=== PATIENT | male | born 1995 | race Caucasian/White ===

== ENCOUNTER 2017-11-29 08:37 | Emergency (ER) | payer BC ==
--- NOTE | 2017-11-29 08:53 | EDPHYS ---
Physician Documentation [facility] Name: Jess Bautista Age: 22 yrs Sex: Male : 1995 Arrival Date: 11/29/2017 Time: 08:42 Bed 20 Private MD: ED Physician Norberto Leroy HPI: 11/29 08:47 This 22 yrs old Male presents to ER via Unassigned with complaints of Facial kb Swelling. 08:47 The patient presents with an abscess of the right nostril, the patient presents with a kb swollen area of the right cheek. Description: draining, erythematous, swollen. Onset: The symptoms/episode began/occurred yesterday. Possible cause(s): unknown. Associated signs and symptoms: Pertinent positives: drainage, erythema, swelling, Pertinent negatives: foreign body sensation, fever, headache, nausea, shortness of breath, vomiting. Modifying factors: the symptoms are alleviated by nothing, the symptoms are aggravated by nothing. Severity of symptoms: At their worst the symptoms were mild, moderate, in the emergency department the symptoms are unchanged. The patient has not experienced similar symptoms in the past. The patient has not recently seen a physician. Pt states he has a pimple-like bump in his nose that his girlfriend popped last night, woke up with swelling right cheek and nose. Historical: - Allergies: 08:49 No Known Allergies; em - Home Meds: 08:49 None [Active]; em - PMHx: 08:49 None; em - PSHx: 08:49 None; em - Immunization history:: Adult Immunizations up to date. - Social history:: Smoking status: Patient/guardian denies using tobacco. ROS: 08:47 Constitutional: Negative for fever, chills, and weight loss, ENT: Negative for injury, kb pain, and discharge, Neck: Negative for injury, pain, and swelling, Cardiovascular: Negative for chest pain, palpitations, and edema, Respiratory: Negative for shortness of breath, cough, wheezing, and pleuritic chest pain, Abdomen/GI: Negative for abdominal pain, nausea, vomiting, diarrhea, and constipation, MS/Extremity: Negative for injury and deformity, Neuro: Negative for headache, weakness, numbness, tingling, and seizure. 08:47 Skin: Positive for abscess, erythema, swelling, of the right nostril. Exam: 08:47 Constitutional: This is a well developed, well nourished patient who is awake, alert, kb and in no acute distress. Chest/axilla: Normal chest wall appearance and motion. Nontender with no deformity. No lesions are appreciated. Cardiovascular: Regular rate and rhythm with a normal S1 and S2. No gallops, murmurs, or rubs. Normal PMI, no JVD. No pulse deficits. Respiratory: Lungs have equal breath sounds bilaterally, clear to auscultation and percussion. No rales, rhonchi or wheezes noted. No increased work of breathing, no retractions or nasal flaring. Abdomen/GI: Soft, non-tender, with normal bowel sounds. No distension or tympany. No guarding or rebound. No evidence of tenderness throughout. MS/ Extremity: Pulses equal, no cyanosis. Neurovascular intact. Full, normal range of motion. Neuro: Awake and alert, GCS 15, oriented to person, place, time, and situation. Cranial nerves II-XII grossly intact. Motor strength 5/5 in all extremities. Sensory grossly intact. Cerebellar exam normal. Normal gait. 08:47 Head/face: Noted is no obvious of injury or deformity except swelling, that is moderate, of the right cheek. 08:47 Skin: abscess, that is small, of the right nostril, with drainage, with induration. Vital Signs: 08:49 BP 140 / 84; Pulse 86; Resp 18; Temp 98.4(O); Pulse Ox 98% on R/A; Weight 56.7 kg; em Height 5 ft. 8 in. (172.72 cm); Pain 6/10; 08:49 Body Mass Index 19.01 (56.70 kg, 172.72 cm) em MDM: 08:47 Data reviewed: vital signs, nurses notes. Data interpreted: Pulse oximetry: on room air kb is 100 %. Interpretation: normal. Counseling: I had a detailed discussion with the patient and/or guardian regarding: the historical points, exam findings, and any diagnostic results supporting the discharge/admit diagnosis, the need for outpatient follow up, a family practitioner, to return to the emergency department if symptoms worsen or persist or if there are any questions or concerns that arise at home. 08:47 Patient medically screened. kb Administered Medications: 09:02 Drug: Bactrim (160 mg-800 mg (DS) 1 tablet Route: PO; em 09:02 Follow up: Response: Medication administered at discharge. em Disposition: 11/29/17 08:53 Discharged to Home. Impression: Cutaneous abscess of face - right nostril. - Condition is Stable. - Discharge Instructions: Abscess, [id number]. - Prescriptions for Bactroban 2 % Topical Ointment - apply 1 application by INTRANASAL route every 12 hours for 5 days; 15 gram. Bactrim DS 800- 160 mg Oral Tablet - take 1 tablet by ORAL route every 12 hours for 7 days; 14 tablet. - Medication Reconciliation Form, Thank You Letter, Antibiotic Education, Prescription Opioid Use form. - Follow up: Emergency Department; When: As needed; Reason: Worsening of condition. Follow up: Private Physician; When: 2 - 3 days; Reason: Recheck today's complaints, Continuance of care, Re-evaluation by your physician. Addendum: 12/01/2017 07:23 Co-signature as Attending Physician, Norberto Leroy MD. g s Signatures: Debra Lim, SHANK BONER-C SHANK BONER-Ckb Balaji Reyes, DIRECTOR SYSTEMS DIRECTOR SYSTEMS Norberto Leroy MD MD
--- NOTE | 2017-11-29 08:53 | ER ---
Nurse's Notes [facility] Name: Jess Bautista Age: 22 yrs Sex: Male : 1995 Arrival Date: 11/29/2017 Time: 08:42 Bed 20 Private MD: Diagnosis: Cutaneous abscess of face-right nostril Presentation: 11/29 08:47 Presenting complaint: Patient states: facial swelling that started last night after em popping pimple in the nose, reports 99 temp. Transition of care: patient was not received from another setting of care. Onset of symptoms was November 28, 2017. Care prior to arrival: None. 08:47 Method Of Arrival: Ambulatory em 08:50 Acuity: AGNES 4 iw Triage Assessment: 08:49 General: Appears in no apparent distress. uncomfortable, right side swelling near top em lip and right side of nose. General: Behavior is calm, cooperative. Pain: Complains of pain in right cheek and nose. Historical: - Allergies: 08:49 No Known Allergies; em - Home Meds: 08:49 None [Active]; em - PMHx: 08:49 None; em - PSHx: 08:49 None; em - Immunization history:: Adult Immunizations up to date. - Social history:: Smoking status: Patient/guardian denies using tobacco. Screenin:51 Abuse screen: Denies threats or abuse. Nutritional screening: No deficits noted. em Tuberculosis screening: No symptoms or risk factors identified. Fall Risk None identified. Assessment: 08:52 General: Appears in no apparent distress. uncomfortable, Behavior is calm, cooperative. em Pain: Complains of pain in right cheek and nose and right nostril Pain currently is 6 out of 10 on a pain scale. Pain began 1 day ago. Neuro: Level of Consciousness is. Neuro: Level of Consciousness is awake, alert, obeys commands, Oriented to person, place, time, situation. Cardiovascular: Capillary refill < 3 seconds Patient's skin is warm and dry. Respiratory: Airway is patent Respiratory effort is even, unlabored, Respiratory pattern is regular, symmetrical. GI: Abdomen is flat. : No signs and/or symptoms were reported regarding the genitourinary system. EENT: Nares swelling noted near the right nare. Derm: Skin is intact, Skin is pink, warm \T\ dry. Musculoskeletal: Range of motion: intact in all extremities. 09:02 Reassessment: I agree with above assessment by Balaji Reyes LVN. iw Vital Signs: 08:49 BP 140 / 84; Pulse 86; Resp 18; Temp 98.4(O); Pulse Ox 98% on R/A; Weight 56.7 kg; em Height 5 ft. 8 in. (172.72 cm); Pain 6/10; 08:49 Body Mass Index 19.01 (56.70 kg, 172.72 cm) em ED Course: 08:42 Patient arrived in ED. mr 08:43 Debra Lim FNP-C is PHCP. kb 08:43 Norberto Leroy MD is Attending Physician. kb 08:47 Balaji Reyes LVN is Primary Nurse. em 08:49 Arm band placed on. em 08:51 Patient has correct armband on for positive identification. Bed in low position. Call em light in reach. Side rails up X2. Adult w/ patient. 08:51 No provider procedures requiring assistance completed. em 09:02 Patient did not have IV access during this emergency room visit. em 09:03 Triage completed. iw Administered Medications: 09:02 Drug: Bactrim (160 mg-800 mg (DS) 1 tablet Route: PO; em 09:02 Follow up: Response: Medication administered at discharge. em Outcome: 08:53 Discharge ordered by . kb 09:02 Discharged to home ambulatory. em 09:02 Condition: good 09:02 Discharge instructions given to patient, Instructed on discharge instructions, follow up and referral plans. medication usage, Demonstrated understanding of instructions, follow-up care, medications, Prescriptions given X 2. 09:03 Patient left the ED. em Signatures: Debra Lim FNP-C FNP-Ckb Rivera, Maria ReyesBalaji LVN LVN em Krys Perez RN RN iw
[2017-11-29] MEDS ORDERED: SMZ./TMP. 800/160 MG TABLET ONE (09:17)
== END 2017-11-29 09:03 | disposition home or self-care (01) ==
LOC: ER 08:37
DX: L02.01 Cutaneous abscess of face (principal)
CPT/HCPCS: 99283

== ENCOUNTER 2018-04-13 21:08 | Emergency (ER) | payer BC ==
--- NOTE | 2018-04-13 22:20 | ER ---
Nurse's Notes [facility] Name: Jess Bautista Age: 23 yrs Sex: Male : 1995 Arrival Date: 04/13/2018 Time: 21:13 Bed 3 Private MD: Diagnosis: Acute pharyngitis Presentation: 04/13 21:23 Presenting complaint: Patient states: Sore throat since this AM. Transition of care: aj patient was not received from another setting of care. Onset of symptoms was April 13, 2018. Risk Assessment: Do you want to hurt yourself or someone else? Patient reports no desire to harm self or others. Initial Sepsis Screen: Does the patient meet any 2 criteria? No. Patient's initial sepsis screen is negative. Does the patient have a suspected source of infection? No. Patient's initial sepsis screen is negative. Care prior to arrival: None. 21:23 Method Of Arrival: Ambulatory 21:23 Acuity: AGNES 4 Triage Assessment: 21:23 General: Appears in no apparent distress. comfortable, Behavior is calm, cooperative, aj appropriate for age. Pain: Denies pain. EENT: Reports pain when swallowing. EENT: Throat is reddened. Neuro: Level of Consciousness is awake, alert, obeys commands, Oriented to person, place, time, situation, Appropriate for age. Respiratory: Airway is patent Respiratory effort is even, unlabored, Respiratory pattern is regular, symmetrical. Derm: Skin is intact, is healthy with good turgor, Skin is pink, warm \T\ dry. normal. 21:24 EENT: Reports nasal congestion nasal discharge. aj Historical: - Allergies: 21:23 No Known Allergies; aj - Home Meds: 21:23 None [Active]; aj - PMHx: 21:23 None; aj - PSHx: 21:23 None; aj - Immunization history:: Adult Immunizations up to date. - Social history:: Smoking status: Patient uses tobacco products, denies chronic smoking, but will smoke occasionally. - Ebola Screening: : Patient negative for fever greater than or equal to 101.5 degrees Fahrenheit, and additional compatible Ebola Virus Disease symptoms Patient denies exposure to infectious person Patient denies travel to an Ebola-affected area in the 21 days before illness onset No symptoms or risks identified at this time. Screenin:28 Abuse screen: Denies threats or abuse. Denies injuries from another. Nutritional bp screening: No deficits noted. Tuberculosis screening: No symptoms or risk factors identified. Fall Risk None identified. Assessment: 21:29 General: Appears in no apparent distress. comfortable, Behavior is calm, cooperative, bp appropriate for age. Pain: Complains of pain in neck. Neuro: Level of Consciousness is awake, alert, obeys commands, Oriented to person, place, time, situation, Appropriate for age. Cardiovascular: No deficits noted. Respiratory: Airway is patent Respiratory effort is even, unlabored, Respiratory pattern is regular, symmetrical. GI: No signs and/or symptoms were reported involving the gastrointestinal system. : No signs and/or symptoms were reported regarding the genitourinary system. EENT: Reports difficulty swallowing. Derm: No deficits noted. Musculoskeletal: Circulation, motion, and sensation intact. Range of motion: intact in all extremities. 21:53 Reassessment: Patient and/or family updated on plan of care and expected duration. Pain ea level reassessed. Patient is alert, oriented x 3, equal unlabored respirations, skin warm/dry/pink. 22:33 Reassessment: Patient and/or family updated on plan of care and expected duration. Pain ea level reassessed. Patient is alert, oriented x 3, equal unlabored respirations, skin warm/dry/pink. Discharge instructions given to patient, verbalized the understanding of instruction. Vital Signs: 21:23 BP 138 / 89; Pulse 91; Resp 16; Temp 97.8; Pulse Ox 98% on R/A; Weight 56.7 kg; Height aj 5 ft. 7 in. (170.18 cm); 22:09 BP 150 / 71; Pulse 67; Resp 18; Pulse Ox 100% on R/A; Pain 3/10; ea 21:23 Body Mass Index 19.58 (56.70 kg, 170.18 cm) aj ED Course: 21:13 Patient arrived in ED. do 21:23 Triage completed. aj 21:23 Arm band placed on left wrist. Patient placed in an exam room. aj 21:26 Norberto Leroy MD is Attending Physician. gs 21:28 Jacky Ayala, RN is Primary Nurse. bp 21:28 Patient has correct armband on for positive identification. Bed in low position. Call bp light in reach. Side rails up X2. 22:34 No provider procedures requiring assistance completed. Patient did not have IV access ea during this emergency room visit. Administered Medications: No medications were administered Outcome: 22:19 Discharge ordered by . alis 22:34 Discharged to home ambulatory. ea 22:34 Condition: good 22:34 Discharge instructions given to patient, Instructed on discharge instructions, follow up and referral plans. Demonstrated understanding of instructions, follow-up care. 22:35 Patient left the ED. ea Signatures: Filomena Main RN RN Karla Novak Elena, RN RN ea Starr, Gregory, MD MD gs Peltier, Brian RN RN bp Corrections: (The following items were deleted from the chart) 22:38 21:23 Social history: Smoking status: Patient/guardian denies using tobacco, scout snell
--- NOTE | 2018-04-13 22:20 | EDPHYS ---
Physician Documentation [facility] Name: Jess Bautista Age: 23 yrs Sex: Male : 1995 Arrival Date: 04/13/2018 Time: 21:13 Bed 3 Private MD: ED Physician Norberto Leroy HPI: 04/13 22:37 This 23 yrs old Male presents to ER via Ambulatory with complaints of gs Fatigue, Feels Like Swollen Tonsils. 22:37 The patient presents with sore throat. Onset: The symptoms/episode began/occurred 2 gs day(s) ago, and became persistent. Severity of symptoms: At their worst the symptoms were moderate, in the emergency department the symptoms are unchanged. Modifying factors: the symptoms are aggravated by swallowing. Associated signs and symptoms: Pertinent positives: flu-like symptoms, malaise, Pertinent negatives fever. The patient has experienced similar episodes in the past, a few times. The patient has not recently seen a physician. Historical: - Allergies: 21:23 No Known Allergies; aj - Home Meds: 21:23 None [Active]; aj - PMHx: 21:23 None; aj - PSHx: 21:23 None; aj - Immunization history:: Adult Immunizations up to date. - Social history:: Smoking status: Patient uses tobacco products, denies chronic smoking, but will smoke occasionally. - Ebola Screening: : Patient negative for fever greater than or equal to 101.5 degrees Fahrenheit, and additional compatible Ebola Virus Disease symptoms Patient denies exposure to infectious person Patient denies travel to an Ebola-affected area in the 21 days before illness onset No symptoms or risks identified at this time. ROS: 22:37 All other systems are negative. gs Exam: 22:37 Head/Face: Normocephalic, atraumatic. Eyes: Pupils equal round and reactive to light, gs extra-ocular motions intact. Lids and lashes normal. Conjunctiva and sclera are non-icteric and not injected. Cornea within normal limits. Periorbital areas with no swelling, redness, or edema. Neck: Trachea midline, no thyromegaly or masses palpated, and no cervical lymphadenopathy. Supple, full range of motion without nuchal rigidity, or vertebral point tenderness. No Meningismus. Chest/axilla: Normal chest wall appearance and motion. Nontender with no deformity. No lesions are appreciated. Cardiovascular: Regular rate and rhythm with a normal S1 and S2. No gallops, murmurs, or rubs. Normal PMI, no JVD. No pulse deficits. Respiratory: Lungs have equal breath sounds bilaterally, clear to auscultation and percussion. No rales, rhonchi or wheezes noted. No increased work of breathing, no retractions or nasal flaring. Abdomen/GI: Soft, non-tender, with normal bowel sounds. No distension or tympany. No guarding or rebound. No evidence of tenderness throughout. Back: No spinal tenderness. No costovertebral tenderness. Full range of motion. Skin: Warm, dry with normal turgor. Normal color with no rashes, no lesions, and no evidence of cellulitis. MS/ Extremity: Pulses equal, no cyanosis. Neurovascular intact. Full, normal range of motion. Neuro: Awake and alert, GCS 15, oriented to person, place, time, and situation. Cranial nerves II-XII grossly intact. Motor strength 5/5 in all extremities. Sensory grossly intact. Cerebellar exam normal. Normal gait. 22:37 Constitutional: The patient appears alert, awake. 22:37 ENT: TM's: are normal, Posterior pharynx: erythema, that is mild. Vital Signs: 21:23 BP 138 / 89; Pulse 91; Resp 16; Temp 97.8; Pulse Ox 98% on R/A; Weight 56.7 kg; Height aj 5 ft. 7 in. (170.18 cm); 22:09 BP 150 / 71; Pulse 67; Resp 18; Pulse Ox 100% on R/A; Pain 3/10; ea 21:23 Body Mass Index 19.58 (56.70 kg, 170.18 cm) MDM: 21:34 Patient medically screened. 22:37 Differential diagnosis: group A strep tonsillitis, pharyngitis, upper respiratory gs infection. Data reviewed: vital signs, nurses notes. Response to treatment: the patient's symptoms have mildly improved after treatment, and as a result, I will discharge patient. 04/13 21:38 Order name: Strep; Complete Time: 22:18 gs 04/13 22:19 Order name: Throat Culture EDMS Administered Medications: No medications were administered Disposition: 04/13/18 22:19 Discharged to Home. Impression: Acute pharyngitis. - Condition is Stable. - Discharge Instructions: Pharyngitis, [id number]. - Medication Reconciliation Form, Thank You Letter, Antibiotic Education, Prescription Opioid Use form. - Follow up: Private Physician; When: 2 - 3 days; Reason: Re-evaluation by your physician. Signatures: Dispatcher [employer] Filomena Estrella RN RN aj Antunez, Elena, RN RN ea Starr, Gregory, MD MD gs Corrections: (The following items were deleted from the chart) 22:35 22:19 04/13/2018 22:19 Discharged to Home. Impression: Acute pharyngitis. Condition is ea Stable. Forms are Medication Reconciliation Form, Thank You Letter, Antibiotic Education, Prescription Opioid Use. Follow up: Private Physician; When: 2 - 3 days; Reason: Re-evaluation by your physician. 22:38 21:23 Social history: Smoking status: Patient/guardian denies using tobacco, scout snell
== END 2018-04-13 22:35 | disposition home or self-care (01) ==
LOC: ER 21:08
DX: J02.9 Acute pharyngitis, unspecified (principal); Z72.0 Tobacco use
CPT/HCPCS: 87070; 87081; 99281

== ENCOUNTER 2020-03-29 17:05 | Emergency (ER) | payer BC ==
--- NOTE | 2020-03-29 18:08 | EDPHYS ---
Physician Documentation [facility] Name: Jess Bautista Age: 25 yrs Sex: Male : 1995 Arrival Date: 03/29/2020 Time: 17:07 Bed 17 Private MD: ED Physician Josh Villalba HPI: 03/29 18:11 This 25 yrs old Male presents to ER via Ambulatory with complaints of Sore snw Throat. 18:11 The patient presents with sore throat. The patient describes throat pain as raw, snw scratchy. Onset: The symptoms/episode began/occurred suddenly, 4 day(s) ago, and became persistent. Severity of symptoms: At their worst the symptoms were moderate. Associated signs and symptoms: The patient has no apparent associated signs or symptoms. yes, multiple household strep + contacts. The patient has not recently seen a physician. Historical: - Allergies: 17:22 No Known Allergies; ca1 - Home Meds: 17:22 None [Active]; ca1 - PMHx: 17:22 None; ca1 - PSHx: 17:22 None; ca1 - Immunization history:: Adult Immunizations up to date. - Social history:: Smoking status: Reported history of juuling and/or vaping. ROS: 18:11 Eyes: Negative for injury, pain, redness, and discharge, Neck: Negative for injury, snw pain, and swelling, Cardiovascular: Negative for chest pain, palpitations, and edema, Respiratory: Negative for shortness of breath, cough, wheezing, and pleuritic chest pain, Abdomen/GI: Negative for abdominal pain, nausea, vomiting, diarrhea, and constipation, Back: Negative for injury and pain, : Negative for injury, bleeding, discharge, and swelling, MS/Extremity: Negative for injury and deformity, Skin: Negative for injury, rash, and discoloration, Neuro: Negative for headache, weakness, numbness, tingling, and seizure, Psych: Negative for depression, anxiety, suicide ideation, homicidal ideation, and hallucinations. 18:11 Constitutional: Positive for body aches, poor PO intake. 18:11 ENT: Positive for sore throat. Exam: 18:10 Constitutional: This is a well developed, well nourished patient who is awake, alert, snw and in no acute distress. Head/Face: Normocephalic, atraumatic. Eyes: Pupils equal round and reactive to light, extra-ocular motions intact. Lids and lashes normal. Conjunctiva and sclera are non-icteric and not injected. Cornea within normal limits. Periorbital areas with no swelling, redness, or edema. Neck: Trachea midline, no thyromegaly or masses palpated, and no cervical lymphadenopathy. Supple, full range of motion without nuchal rigidity, or vertebral point tenderness. No Meningismus. Chest/axilla: Normal chest wall appearance and motion. Nontender with no deformity. No lesions are appreciated. Cardiovascular: Regular rate and rhythm with a normal S1 and S2. No gallops, murmurs, or rubs. Normal PMI, no JVD. No pulse deficits. Respiratory: Lungs have equal breath sounds bilaterally, clear to auscultation and percussion. No rales, rhonchi or wheezes noted. No increased work of breathing, no retractions or nasal flaring. Abdomen/GI: Soft, non-tender, with normal bowel sounds. No distension or tympany. No guarding or rebound. No evidence of tenderness throughout. Back: No spinal tenderness. No costovertebral tenderness. Full range of motion. Skin: Warm, dry with normal turgor. Normal color with no rashes, no lesions, and no evidence of cellulitis. MS/ Extremity: Pulses equal, no cyanosis. Neurovascular intact. Full, normal range of motion. Neuro: Awake and alert, GCS 15, oriented to person, place, time, and situation. Cranial nerves II-XII grossly intact. Motor strength 5/5 in all extremities. Sensory grossly intact. Cerebellar exam normal. Normal gait. Psych: Awake, alert, with orientation to person, place and time. Behavior, mood, and affect are within normal limits. 18:10 ENT: External ear(s): are unremarkable, Nose: is normal, Mouth: is normal, Posterior pharynx: Airway: normal, no evidence of obstruction, erythema, that is moderate. Vital Signs: 17:20 BP 131 / 77; Pulse 85; Resp 16 S; Temp 98.3(TE); Pulse Ox 100% on R/A; Weight 63.5 kg ca1 (R); Height 5 ft. 7 in. (170.18 cm) (R); 18:37 BP 127 / 67; Pulse 79; Resp 17; Temp 98.5; Pulse Ox 99% ; bp 17:20 Body Mass Index 21.93 (63.50 kg, 170.18 cm) ca1 MDM: 17:47 Patient medically screened. snw 18:09 Data reviewed: vital signs, nurses notes. Data interpreted: Pulse oximetry: on room air snw is 100 %. Interpretation: normal. Counseling: I had a detailed discussion with the patient and/or guardian regarding: the historical points, exam findings, and any diagnostic results supporting the discharge/admit diagnosis, lab results, the need for outpatient follow up, to return to the emergency department if symptoms worsen or persist or if there are any questions or concerns that arise at home. Special discussion: Based on the history and exam findings, there is no indication for further emergent testing or inpatient evaluation. I discussed with the patient/guardian the need to see the primary care provider for further evaluation of the symptoms. 03/29 18:07 Order name: Strep: already collected snw Administered Medications: 18:15 Drug: Augmentin 875 mg Route: PO; bp 18:36 Follow up: Response: No adverse reaction bp Disposition: 03/30 05:45 Co-signature as Attending Physician, Josh Villalba MD I agree with the assessment and kdr plan of care. Disposition: 03/29/20 18:07 Discharged to Home. Impression: Acute pharyngitis. - Condition is Stable. - Discharge Instructions: Fever, Adult, Pharyngitis, Rehydration, Adult. - Prescriptions for Augmentin 875- 125 mg Oral Tablet - take 1 tablet by ORAL route every 12 hours for 10 days; 20 tablet. promethazine 25 mg Oral Tablet - take 1 tablet by ORAL route every 6 hours As needed; 20 tablet. - Medication Reconciliation Form, Thank You Letter, Antibiotic Education, Prescription Opioid Use form. - Follow up: Private Physician; When: 2 - 3 days; Reason: Recheck today's complaints, Continuance of care, Re-evaluation by your physician. Follow up: Emergency Department; When: As needed; Reason: Worsening of condition. Signatures: Dispatcher [employer] EDJosh Kaur MD MD kdr Waters, Shelly, FAISAL-C BEAM RACKER-Kieraw Jacky Ayala, RN RN bp Maame Hopper RN RN ca1 Corrections: (The following items were deleted from the chart) 03/29 18:38 18:07 03/29/2020 18:07 Discharged to Home. Impression: Acute pharyngitis. Condition is bp Stable. Forms are Medication Reconciliation Form, Thank You Letter, Antibiotic Education, Prescription Opioid Use. Follow up: Private Physician; When: 2 - 3 days; Reason: Recheck today's complaints, Continuance of care, Re-evaluation by your physician. Follow up: Emergency Department; When: As needed; Reason: Worsening of condition. snw
--- NOTE | 2020-03-29 18:08 | ER ---
Nurse's Notes [facility] Name: Jess Bautista Age: 25 yrs Sex: Male : 1995 Arrival Date: 03/29/2020 Time: 17:07 Bed 17 Private MD: Diagnosis: Acute pharyngitis Presentation: 03/29 17:20 Chief complaint: Patient states: Sore throat x 4 days. Coronavirus screen: Patient ca1 denies a cough. Patient denies shortness of breath or difficulty breathing. Patient denies measured and/or subjective temperature greater than 100.4F prior to today's visit. Patient denies travel on a cruise ship or to a country the [facility] currently lists as an affected area. Patient denies contact with known and/or suspected case of COVID-19. Proceed with normal triage. Ebola Screen: Patient negative for fever greater than or equal to 101.5 degrees Fahrenheit, and additional compatible Ebola Virus Disease symptoms Patient denies exposure to infectious person. Patient denies travel to an Ebola-affected area in the 21 days before illness onset. No symptoms or risks identified at this time. Initial Sepsis Screen: Does the patient meet any 2 criteria? No. Patient's initial sepsis screen is negative. Does the patient have a suspected source of infection? No. Patient's initial sepsis screen is negative. Risk Assessment: Do you want to hurt yourself or someone else? Patient reports no desire to harm self or others. 17:20 Method Of Arrival: Ambulatory ca1 17:20 Acuity: AGNES 4 ca1 Triage Assessment: 17:20 General: Appears in no apparent distress. uncomfortable, Behavior is calm, cooperative, bp appropriate for age. Pain: Complains of pain in SORE THROAT. EENT: Reports pain when swallowing. Neuro: No deficits noted. Cardiovascular: No deficits noted. Respiratory: No deficits noted. GI: No signs and/or symptoms were reported involving the gastrointestinal system. : No signs and/or symptoms were reported regarding the genitourinary system. Derm: No deficits noted. Musculoskeletal: No deficits noted. Historical: - Allergies: 17:22 No Known Allergies; ca1 - Home Meds: 17:22 None [Active]; ca1 - PMHx: 17:22 None; ca1 - PSHx: 17:22 None; ca1 - Immunization history:: Adult Immunizations up to date. - Social history:: Smoking status: Reported history of juuling and/or vaping. Screenin:50 Abuse screen: Denies threats or abuse. Denies injuries from another. Nutritional bp screening: No deficits noted. Tuberculosis screening: No symptoms or risk factors identified. Fall Risk None identified. Assessment: 17:50 General: SEE TRIAGE NOTE. bp 18:36 Reassessment: PT D/C HOME AMBULATORY, DX WITH ACUTE PHARYNGITIS. Respiratory: Airway is bp patent Respiratory effort is even, unlabored, Breath sounds are clear bilaterally. EENT: Throat is reddened. Vital Signs: 17:20 BP 131 / 77; Pulse 85; Resp 16 S; Temp 98.3(TE); Pulse Ox 100% on R/A; Weight 63.5 kg ca1 (R); Height 5 ft. 7 in. (170.18 cm) (R); 18:37 BP 127 / 67; Pulse 79; Resp 17; Temp 98.5; Pulse Ox 99% ; bp 17:20 Body Mass Index 21.93 (63.50 kg, 170.18 cm) ca1 ED Course: 17:07 Patient arrived in ED. ag5 17:16 Jacky Ayala, RN is Primary Nurse. bp 17:21 Triage completed. ca1 17:22 Arm band placed on right wrist. ca1 17:37 Suzi Anguiano FNP-C is [facility]. snw 17:37 Josh Villalba MD is Attending Physician. snw 17:50 Patient has correct armband on for positive identification. Bed in low position. Call bp light in reach. Side rails up X2. 18:37 No provider procedures requiring assistance completed. Patient did not have IV access bp during this emergency room visit. Administered Medications: 18:15 Drug: Augmentin 875 mg Route: PO; bp 18:36 Follow up: Response: No adverse reaction bp Outcome: 18:07 Discharge ordered by . snw 18:37 Discharged to home ambulatory. bp 18:37 Condition: stable 18:37 Discharge instructions given to patient, Instructed on discharge instructions, follow up and referral plans. medication usage, Demonstrated understanding of instructions, follow-up care, medications, Prescriptions given X 2. 18:38 Patient left the ED. bp Signatures: Suzi Anguiano FNP-C [facility] H[facility] RESOURCES MANAGER-CsnJacky Banks, RN RN bp Maame Hopper, RN RN ca1 Ron, Anabela ag5
[2020-03-29] MEDS ORDERED: AMOX/K CLAV 875 MG TAB ONE (18:43)
[2020-03-29 19:05] VITALS: BP 127/67; TEMP 98.5; O2SAT 99
== END 2020-03-29 18:38 | disposition home or self-care (01) ==
LOC: ER 17:05
DX: J02.9 Acute pharyngitis, unspecified (principal); Z87.891 Personal history of nicotine dependence
CPT/HCPCS: 87081

== ENCOUNTER 2021-05-05 16:45 | Emergency (ER) | payer BC ==
[2021-05-05 17:58] LABS: Absolute Lymphocytes (CBC) 1.7 K/uL (0.7-4.9); Basophils % 0.8 % (0-1.3); Hematocrit 43.1 % (39.6-49.0); MPV 8.8 fL (7.6-11.3); RBC Red Blood Cell Count 4.83 M/uL (4.33-5.43)
[2021-05-05 17:59] LABS: Potassium 4.4 mmol/L (3.5-5.1)
[2021-05-05 18:08] LABS: Protime INR 1.07
--- NOTE | 2021-05-05 21:38 | ER ---
Nurse's Notes [facility] Name: Jess Bautista Age: 26 yrs Sex: Male : 1995 Arrival Date: 05/05/2021 Time: 16:49 Bed Waiting Private MD: Diagnosis: Presentation: 05/05 17:18 Chief complaint: Patient states: "I felt something touch my arm and I think a aa5 copperhead bit me but I am not having any pain or anything". Pt reports possible dry bite to right arm x 1 hr [employer]. Coronavirus screen: At this time, the client does not indicate any symptoms associated with coronavirus-19. Ebola Screen: Patient negative for fever greater than or equal to 101.5 degrees Fahrenheit, and additional compatible Ebola Virus Disease symptoms. Initial Sepsis Screen: Does the patient meet any 2 criteria? No. Patient's initial sepsis screen is negative. Does the patient have a suspected source of infection? No. Patient's initial sepsis screen is negative. Risk Assessment: Do you want to hurt yourself or someone else? Patient reports no desire to harm self or others. Onset of symptoms was May 2021. 17:18 Method Of Arrival: Ambulatory aa5 17:18 Acuity: AGNES 4 aa5 Historical: - Allergies: 17:20 No Known Allergies; aa5 - PMHx: 17:20 None; aa5 - PSHx: 17:20 None; aa5 - Immunization history:: Client reports having NOT received the Covid vaccine. - Social history:: Smoking status: Reported history of juuling and/or vaping. Assessment: 20:24 Reassessment: Pt stated since his labs where okay and there is no swelling noted or kg pain he wants to just go home. IV removed and patient left AMA. . Vital Signs: 17:18 BP 130 / 82; Pulse 83; Resp 18 S; Temp 98.0(TE); Pulse Ox 100% on R/A; Weight 57.61 kg aa5 (R); Height 5 ft. 7 in. (170.18 cm) (R); 17:18 Body Mass Index 19.89 (57.61 kg, 170.18 cm) aa5 ED Course: 16:49 Patient arrived in ED. mr 17:18 Arm band placed on. aa5 17:20 Triage completed. aa5 17:25 Walter Dick PA is PHCP. cp 17:25 Walter Zamudio MD is Attending Physician. cp 17:30 Initial lab(s) drawn, by me, sent to lab. Inserted saline lock: 20 gauge in left aa5 antecubital area, using aseptic technique. Blood collected. 20:24 IV discontinued, intact, bleeding controlled, No redness/swelling at site. Pressure kg dressing applied. Administered Medications: No medications were administered Outcome: 21:37 Patient left the ED. kg Signatures: Courtney Batres mr PollackBillie, RN RN aa5 Walter Dick PA PA cp Aliza Love, RN RN kg
--- NOTE | 2021-05-05 21:38 | EDPHYS ---
Physician Documentation [facility] Name: Jess Bautista Age: 26 yrs Sex: Male : 1995 Arrival Date: 05/05/2021 Time: 16:49 Bed Waiting Private MD: Walter Jha HPI: 05/05 17:27 This 26 yrs old Male presents to ER via Ambulatory with complaints of Snake cp bite. 17:27 The patient was bitten on the volar side of right wrist. Onset: The symptoms/episode cp began/occurred 1 hour(s) ago. Animal information: The snake had the markings of a copperhead snake. Secondary to the bite the patient reports multiple puncture wounds, that are superficial. Associated signs and symptoms: The patient has no apparent associated signs or symptoms. Historical: - Allergies: 17:20 No Known Allergies; aa5 - PMHx: 17:20 None; aa5 - PSHx: 17:20 None; aa5 - Immunization history:: Client reports having NOT received the Covid vaccine. - Social history:: Smoking status: Reported history of juuling and/or vaping. ROS: 17:28 Skin: Positive for puncture, of the volar side right wrist. cp 17:28 Constitutional: Negative for body aches, chills, fever. cp 17:28 Eyes: Negative for injury, pain, redness, and discharge. cp 17:28 Cardiovascular: Negative for chest pain. 17:28 Respiratory: Negative for cough, shortness of breath, wheezing. 17:28 Abdomen/GI: Negative for abdominal pain, nausea and vomiting. 17:28 Neuro: Negative for altered mental status, headache, loss of consciousness, syncope, weakness. 17:28 All other systems are negative. Exam: 17:29 Head/Face: Normocephalic, atraumatic. cp 17:29 Constitutional: The patient appears in no acute distress, alert, awake, comfortable, non-diaphoretic, non-toxic, well developed, well nourished. 17:29 Chest/axilla: Inspection: normal. 17:29 Cardiovascular: Rate: normal, Rhythm: regular. 17:29 Respiratory: the patient does not display signs of respiratory distress, Respirations: normal, no use of accessory muscles, no retractions, labored breathing, is not present, Breath sounds: are clear throughout, no decreased breath sounds, no stridor, no wheezing. Vital Signs: 17:18 BP 130 / 82; Pulse 83; Resp 18 S; Temp 98.0(TE); Pulse Ox 100% on R/A; Weight 57.61 kg aa5 (R); Height 5 ft. 7 in. (170.18 cm) (R); 17:18 Body Mass Index 19.89 (57.61 kg, 170.18 cm) aa5 MDM: 05/05 17:27 Order name: CBC with Diff; Complete Time: 20:00 cp 05/05 17:27 Order name: BMP; Complete Time: 20:00 cp 05/05 17:27 Order name: PT-INR; Complete Time: 20:00 cp 05/05 17:27 Order name: Ptt, Activated; Complete Time: 20:00 cp 05/05 17:27 Order name: Fibrinogen; Complete Time: 20:00 cp 05/05 17:27 Order name: CK; Complete Time: 20:00 cp 05/05 17:27 Order name: IV; Complete Time: 17:28 cp Administered Medications: No medications were administered Disposition Summary: 05/05/21 21:37 Eloped Disposition: Before Triage kg Reason: wait time kg Addendum: 05/07/2021 15:11 Co-signature as Attending Physician, Walter Zamudio MD I agree with the assessment and c wallace plan of care. Signatures: Dispatcher [employer] Walter Ricks MD MD cha Calderon, Audri, RN RN aa5 Walter Dick PA PA cp Aliza Love, RN RN kg Corrections: (The following items were deleted from the chart) 05/06 15:23 05/05 17:28 All other systems are negative, cp cp
[2021-05-05 21:46] VITALS: BP 130/82; TEMP 98; O2SAT 100
== END 2021-05-05 21:37 | disposition left against medical advice (07) ==
LOC: ER 16:45
DX: Z53.21 Procedure and treatment not carried out due to patient leaving prior to being seen by health care provider (principal)
CPT/HCPCS: 36415; 80048; 82550; 85025; 85384; 85610; 85730; 99283

== ENCOUNTER 2023-03-17 18:59 | Emergency (ER) | payer BC, SELFPAY ==
--- OUTSIDE RECORDS SUMMARY | 2023-03-17 19:03 | XMS REPORT | Continuity of Care Document ---
:1995 Author Organization [facility] t Address [address] [place] [address] [place] [id number] Care Team Providers Name Role Phone Pcp, Patient Does Not Have A Primary Care Physician [id number] ILENE MARTINES Attending Clinician Unavailable Saranya Atkins MD Attending Clinician Surgery, [facility] Attending Clinician Ellie vailable SARANYA ATKINS Attending Clinician Unavailable Lionel Cuevas MD Attending Clinician LIONEL CUEVAS Attending Clinician Unavailable Kelly Warren DO Attending Clinician Abdiel Contreras MD Attending Clinician Cosmo He MD Attending Clinician Joseph Garcia MD Attending Clinician SARANYA ATKINS Admitting Clinician Unavailable Saranya Atkins MD Admitting Clinician Payers Payer Name Policy Type Policy Number Effective Date Expiration Date S ource Problems Condition Condition Condition Status Onset Resolution Last Treating Co mments Source Name Details Category Date Date Treatment Clinician Date Laceration Laceration Disease Active 2021-09 Overview : Univers of right of right 09-06 Formattin ity of upper upper 00:00: g of this [place] extremity, extremity, 00 note Me dical initial initial might be Branch encounter encounter different from the original. Added automatic ally from request for surgery [id number] Allergies, Adverse Reactions, Alerts Allergy Allergy Status Severity Reaction(s) Onset Inactive Treating Comm ents Source Name Type Date Date Clinician NO KNOWN Drug Active Univers ALLERGIE Class ity of [facility] Social History Social Habit Start Date Stop Date Quantity Comments Source Exposure to 2022-07-22 2022-08-01 [facility] sure [facility]00 [facility] (event) [place] Tobacco use and 2022-07-11 2022-07-11 Smokeless tobacco Un iversity of exposure 00:00:00 00:00:00 non-user [facility] Sex Assigned At [birth year] Universit y of 00:00:00 00:00:00 [facility] Smoking Status Start Date Stop Date Source Tobacco smoking [facility] Medications Ordered Filled Start Stop Current Ordering Indication Dosage Frequency Signature Comments Components Source Medication Medication Date Date Medication? Clinician (SIG) Name Name No known 2021-09 No No known Unive rs medications 2-01 medication it y of 10:45: [address] No known 2021-09 No No known Unive rs medications 2-01 medication it y of 10:45: [address] No known 2021-09 No No known Unive rs medications 2-01 medication it y of 10:45: [address] No known 2021-09 No No known Unive rs medications 2-01 medication it y of 10:45: [address] No known 2021-09 No No known Unive rs medications 1-10 medication it y of 11:27: [address] No known 2021-09 No No known Unive rs medications 1-10 medication it y of 11:27: [address] pantoprazol 2021-09 Yes 40mg 40 mg, Univ ers e 1-08 Oral, ity of (PROTONIX) 15:00: DAILY, [place] EC tablet 00 First dose Medi boris 40 mg on [facility] 07/09/22 at 0900, Until Discontinu ed, Routine pantoprazol 2021-09 Yes 40mg 40 mg, Univ ers e 1-08 Oral, ity of (PROTONIX) 15:00: DAILY, [place] EC tablet 00 First dose Medi boris 40 mg on [facility] 07/09/22 at 0900, Until Discontinu ed, Routine ibuprofen 2021-09- No [id number] 800mg Take 1 Univers 800 mg 09-07 tablet by ity of tablet 00:00: 05:59 mouth [place] 00 :00 every 6 Medical (six) Branch hours as needed for Alternate with [place] for pain scale 1-3 for up to 15 days. ibuprofen 2021-09- No [id number] 800mg Take 1 Univers 800 mg 09-07 tablet by ity of tablet 00:00: 05:59 mouth [place] 00 :00 every 6 Medical (six) Branch hours as needed for Alternate with [place] for pain scale 1-3 for up to 15 days. ibuprofen 2021-09- No [id number] 800mg Take 1 Univers 800 mg 09-07 tablet by ity of tablet 00:00: 05:59 mouth [place] 00 :00 every 6 Medical (six) Branch hours as needed for Alternate with [place] for pain scale 1-3 for up to 15 days. ibuprofen 2021-09- No [id number] 800mg Take 1 Univers 800 mg 09-07 tablet by ity of tablet 00:00: 05:59 mouth [place] 00 :00 every 6 Medical (six) Branch hours as needed for Alternate with [place] for pain scale 1-3 for up to 15 days. ibuprofen 2021-09- No [id number] 800mg Take 1 Univers 800 mg 09-07 tablet by ity of tablet 00:00: 05:59 mouth [place] 00 :00 every 6 Medical (six) Branch hours as needed for Alternate with [place] for pain scale 1-3 for up to 15 days. ibuprofen 2021-09- No [id number] 800mg Take 1 Univers 800 mg 09-07 tablet by ity of tablet 00:00: 05:59 mouth [place] 00 :00 every 6 Medical (six) Branch hours as needed for Alternate with [place] for pain scale 1-3 for up to 15 days. HYDROcodone 2021-09- No [id number] 1{tbl} Take 1 U nivers -acetaminop 09-07 tablet by it y of hen 10-325 00:00: 05:59 mouth [place] mg tablet 00 :00 every 8 Medical (eight) Branch hours as needed for Pain (scale 4-6) or Pain (scale 7-10) for up to 7 days. Indication s: acute pain HYDROcodone 2021-09 No 4647 1{tbl} Take 1 U nivers -acetaminop - 11-15 tablet by it y of hen 10-325 00:00: 05:59 mouth [place] mg tablet 00 :00 every 8 Medical (eight) Branch hours as needed for Pain (scale 4-6) or Pain (scale 7-10) for up to 7 days. Indication s: acute pain HYDROcodone 2021-09 No 4647 1{tbl} Take 1 U nivers -acetaminop - 11-15 tablet by it y of hen 10-325 00:00: 05:59 mouth [place] mg tablet 00 :00 every 8 Medical (eight) Branch hours as needed for Pain (scale 4-6) or Pain (scale 7-10) for up to 7 days. Indication s: acute pain HYDROcodone 2021-09 No 4647 1{tbl} Take 1 U nivers -acetaminop - 11-15 tablet by it y of hen 10-325 00:00: 05:59 mouth [place] mg tablet 00 :00 every 8 Medical (eight) Branch hours as needed for Pain (scale 4-6) or Pain (scale 7-10) for up to 7 days. Indication s: acute pain ceFAZolin 2021-09 2000mg 2 g (2,000 Univers in 0.9% 09-07 11-07 mg), ity of sodium 00:00: 10:38 Intravenou [place] chloride 00 :00 s, Q8H Medical (ANCEF) 2 ABX, 2 Branch gram/100 mL doses, RTU 2 g First dose on Fri07/07/22 at 1800, Last dose on Fri07/08/22 at 0200, Administer over 30 Minutes, 100 mL
Reas on for Anti-Infec tive: Surgical Prophylaxi s
Surgi boris Prophylaxi s: Other (see Comments)< br>Duratio n of therapy: within 24 hours of surgery ceFAZolin 2021-09 No 2000mg 2 g (2,000 Univers in 0.9% 09-07 11-07 mg), ity of sodium 00:00: 10:38 Intravenou [place] chloride 00 :00 s, Q8H Medical (ANCEF) 2 ABX, 2 Branch gram/100 mL doses, RTU 2 g First dose on [place] 07/07/22 at 1800, Last dose on Fri07/08/22 at 0200, Administer over 30 Minutes, 100 mL
Reas on for Anti-Infec tive: Surgical Prophylaxi s
Surgi boris Prophylaxi s: Other (see Comments)< br>Duratio n of therapy: within 24 hours of surgery enoxaparin 2021-09 Yes 40mg 40 mg, Unive rs (LOVENOX) -06 Subcutaneo ity of injection 23:00: [place], [place]ILY, [place] 40 mg 00 First dose Medical on [facility] 07/07/22 at 1700, Until Discontinu ed, Routine enoxaparin 2021-09 Yes 40mg 40 mg, Unive rs (LOVENOX) -06 Subcutaneo ity of injection 23:00: [place], [place]ILY, [place] 40 mg 00 First dose Medical on [facility] 07/07/22 at 1700, Until Discontinu ed, Routine bacitracin 2021-09 Yes Topical, Uni vers 500 unit/g 1-06 TID, First ity of ointment 30 20:00: dose on [place] as g tube [facility] 07/07/22 at Branch 1400, Until Discontinu ed, Routine bacitracin 2021-09 Yes Topical, Uni vers 500 unit/g 1-06 TID, First ity of ointment 30 20:00: dose on [place] as g tube [facility] 07/07/22 at Branch 1400, Until Discontinu ed, Routine methocarbam 2021-09 Yes 500mg 500 mg, Un mary oL 1-06 Oral, Q6H, ity of (ROBAXIN) 18:00: First dose [place] tablet 500 00 on [facility] mg 07/07/22 at Branch 1200, Until Discontinu ed, Routine acetaminoph 2021-09 Yes 650mg 650 mg, Un mary en 1-06 Oral, Q6H, ity of (TYLENOL) 18:00: First dose [place] tablet 650 00 on [facility] mg 07/07/22 at Branch 1200, Until Discontinu ed, Routine methocarbam 2021-09 Yes 500mg 500 mg, Un mary oL 1-06 Oral, Q6H, ity of (ROBAXIN) 18:00: First dose [place] tablet 500 00 on [facility] mg 07/07/22 at Branch 1200, Until Discontinu ed, Routine acetaminoph 2021-09 Yes 650mg 650 mg, Un mary en 1-06 Oral, Q6H, ity of (TYLENOL) 18:00: First dose [place] tablet 650 00 on [facility] mg 07/07/22 at Branch 1200, Until Discontinu ed, Routine lactated 2021-09 Yes 1000mL at 75 Univer s ringers IV 1-06 mL/hr, ity of infusion 15:30: 1,000 mL, [place] 1,000 mL 00 IV Medical Infusion, Branch CONTINUOUS , Starting on 07/07/22 at 0930, Until Discontinu ed, Routine, PACU lactated 2021-09 Yes 1000mL at 75 Univer s ringers IV 1-06 mL/hr, ity of infusion 15:30: 1,000 mL, [place] 1,000 mL 00 IV Medical Infusion, Branch CONTINUOUS , Starting on 07/07/22 at 0930, Until Discontinu ed, Routine, PACU HYDROcodone 2021-09- No 1{tbl} 1 tablet, Univers -acetaminop 09-06- Oral, ity of hen (NORCO 15:30: 16:51 ONCE, 1 [place] as 5) 5-325 mg 00 :00 dose, On Medi boris tablet 1 [facility] tablet 07/07/22 at 0930, Routine, PACU HYDROcodone 2021-09- No 1{tbl} 1 tablet, Univers -acetaminop -02 09-06 Oral, ity of hen (NORCO 15:30: 16:51 ONCE, 1 [place] as 5) 5-325 mg 00 :00 dose, On Medi boris tablet 1 [facility] tablet 07/07/22 at 0930, Routine, PACU lactated 2021-09 Yes 1000mL at 125 Unive rs ringers IV 1-06 mL/hr, ity of infusion 15:15: 1,000 mL, [place] 1,000 mL 00 IV Medical Infusion, Branch CONTINUOUS , Starting on 07/07/22 at 0915, Until Discontinu ed, Routine lactated 2021-09 Yes 1000mL at 125 Unive rs ringers IV 1-06 mL/hr, ity of infusion 15:15: 1,000 mL, [place] 1,000 mL 00 IV Medical Infusion, Branch CONTINUOUS , Starting on 07/07/22 at 0915, Until Discontinu ed, Routine iopamidol 2021-09- No [id number] 100mL 100 mL, Univers (ISOVUE 09-06- Intravenou ity o f 370-500 mL) 15:15: 15:15 s, ONCE, 1 [place] injection 00 :00 dose, On Medica l 100 mL [facility] 07/07/22 at 0915, Routine iopamidol 2021-09- No [id number] 100mL 100 mL, Univers (ISOVUE 09-06- Intravenou ity o f 370-500 mL) 15:15: 15:15 s, ONCE, 1 [place] injection 00 :00 dose, On Medica l 100 mL [place] [facility] 07/07/22 at 0915, Routine HYDROcodone 2021-09 Yes 1{tbl} 1 tablet, Univers -acetaminop 1-06 Oral, ity of hen (NORCO) 15:06: Q4HPRN, [place] as 10-325 mg 31 Starting Medica l tablet 1 on [facility] tablet 07/07/22 at 0906, Until Discontinu ed, Routine, Pain (scale 4-6), Pain (scale 7-10) HYDROcodone 2021-09 Yes 1{tbl} 1 tablet, Univers -acetaminop 1-06 Oral, ity of hen (NORCO) 15:06: Q4HPRN, [place] as 10-325 mg 31 Starting Medica l tablet 1 on [facility] tablet 07/07/22 at 0906, Until Discontinu ed, Routine, Pain (scale 4-6), Pain (scale 7-10) ondansetron 2021-09 Yes 4mg 4 mg, Slow Univers (ZOFRAN 1-06 IV Push, ity of (PF)) 15:04: Administer [place] injection 4 30 over 15 Medic al mg Minutes, Branch Q8HPRN, Starting on 07/07/22 at 0904, Until Discontinu ed, Routine, Nausea and Vomiting (N/V) ondansetron 2021-09 Yes 4mg 4 mg, Slow Univers (ZOFRAN 06 IV Push, ity of (PF)) 15:04: Administer [place] injection 4 30 over 15 Medic al mg Minutes, Branch Q8HPRN, Starting on 07/07/22 at 0904, Until Discontinu ed, Routine, Nausea and Vomiting (N/V) sugammadex 2021-09- No IV Push, Un mary (BRIDION) 09-06 ONCE INTRA ity of injection 15:02: 16:09 PROCEDURE, [place] 00 :36 Starting Medical on [facility] 07/07/22 at 0902, Until 07/07/22 at 1009, Routine, Intra-op ePHEDrine 2021-09- No Slow IV Univ ers 25 mg/5 mL 09-06 Push, ONCE it y of (5 mg/mL) 14:37: 16:09 INTRA [place] syringe 00 :36 PROCEDURE, Medica l Starting Branch on 07/07/22 at 0837, Until 07/07/22 at 1009, Routine, Intra-op ondansetron 2021-09- No Slow IV Un mary (ZOFRAN 09-06 Push, ONCE ity o f (PF)) 14:31: 16:09 INTRA [place] injection 00 :36 PROCEDURE, Medi boris Starting Branch on 07/07/22 at 0831, Until 07/07/22 at 1009, Routine, Intra-op HYDROmorphO 2021-09- No Slow IV Un mary ne 09-06 Push, ONCE ity of (DILAUDID) 14:31: 16:09 INTRA [place] injection 00 :36 PROCEDURE, Medi boris Starting Branch on 07/07/22 at 0831, Until 07/07/22 at 1009, Routine, Intra-op acetaminoph 2021-09- No IV Unive rs en ADULT 09-06 Infusion, ity o f (OFIRMEV) 14:31: 16:09 Administer [place] injection 00 :36 over 15 Medical Minutes, Branch ONCE INTRA PROCEDURE, Starting on 07/07/22 at 0831, Until 07/07/22 at 1009, Routine, Intra-op metoclopram 2021-09- No Intravenou Univers ayad HCl 09-06 s, ONCE ity of (REGLAN) 14:26: 16:09 INTRA [place] injection 00 :36 PROCEDURE, Medi boris Starting Branch on [place] 07/07/22 at 0826, Until [place] 07/07/22 at 1009, Routine, Intra-op ceFAZolin 2021-09- No Slow IV Univ ers (ANCEF) 09-06 Push, ONCE ity o f injection 14:10: 16:09 INTRA [place] 00 :36 PROCEDURE, Medical Starting Branch on [place] 07/07/22 at 0810, Until Discontinu ed, PABLO, Intra-op PHENYLephri 2021-09- No Slow IV Un mary ne 1000 09-06 Push, ONCE ity o f mcg/10 mL 14:03: 16:09 INTRA [place] in 0.9% 00 :36 PROCEDURE, Medica l NaCl Starting Branch syringe on [place] 07/07/22 at 0803, Until Discontinu ed, Routine, Intra-op rocuronium 2021-09- No IV Push, Un mary (ZEMURON) 09-06 ONCE INTRA ity of injection 13:58: 16:09 PROCEDURE, [place] 00 :36 Starting Medical on [facility] 07/07/22 at 0758, Until Discontinu ed, Routine, Intra-op lidocaine 2021-09- No Slow IV Univ ers 1% 09-06 Push, ONCE ity of (XYLOCAINE) 13:58: 16:09 INTRA [place] 100 mg/10 00 :36 PROCEDURE, Medi boris mL (1 %) Starting Branch injection on [place] 07/07/22 at 0758, Until Discontinu ed, Routine, Intra-op propofoL IV 2021-09- No IV Unive rs infusion 09-06 Infusion, ity o f 13:58: 16:09 ONCE INTRA [place] 00 :36 PROCEDURE, Medical Starting Branch on [place] 07/07/22 at 0758, Until Discontinu ed, Routine, Intra-op FENTanyl PF 2021-09- No Epidural, Univers (SUBLIMAZE 09-06 ONCE INTRA it y of (PF)) 13:58: 16:09 PROCEDURE, [place] injection 00 :36 Starting Medica l on [facility] 07/07/22 at 0758, Until Discontinu ed, Routine, Intra-op midazolam 2021-09 IV Push, Uni vers (VERSED) 09-06 ONCE INTRA ity of injection 13:58: 16:09 PROCEDURE, [place] 00 :36 Starting Medical on [facility] 07/07/22 at 0758, Until Discontinu ed, Routine, Intra-op lactated 2021-09 IV Univers ringers IV 09-06 Infusion, ity of infusion 13:53: 16:09 CONTINUOUS [place] 00 :36 PRN, Medical Starting Branch on [place] 07/07/22 at 0753, Until Discontinu ed, Routine, Intra-op Vital Signs Vital Name Observation Time Observation Value Comments Source Systolic blood 2022-08-01 16:51:00 132 mm[Hg] Univer sity [facility] Diastolic blood 2022-08-01 16:51:00 79 mm[Hg] Unive rsity [facility] Heart rate 2022-08-01 16:51:00 74 /min [facility] Body temperature 2022-08-01 16:51:00 36.56 Maira [facility] Respiratory rate 2022-08-01 16:51:00 18 /min [facility] Body height 2022-08-01 16:51:00 170.2 cm [facility] Body weight 2022-08-01 16:51:00 55.883 kg [facility] BMI 2022-08-01 16:51:00 19.30 kg/m2 [facility] Oxygen saturation in 2022-08-01 16:51:00 100 /min [facility] Arterial blood by [facility] Pulse oximetry Branch Systolic blood 2022-07-11 17:05:00 137 mm[Hg] Univer sity of [facility] Diastolic blood 2022-07-11 17:05:00 79 mm[Hg] Unive rsity of [facility] Heart rate 2022-07-11 17:05:00 77 /min [facility] Body temperature 2022-07-11 17:05:00 36.72 [facility]a [facility] 2022-07-11 17:05:00 16 /min Univ ersity [facility] [place] [facility] Body height 2022-07-11 17:05:00 170.2 cm [facility]i ty [facility] [place] [facility] Body weight 2022-07-11 17:05:00 56.201 kg [facility] [place] [facility] BMI 2022-07-11 17:05:00 19.41 kg/m2 [facility]i ty [facility] [place] [facility] Oxygen saturation in 2022-07-11 17:05:00 98 /min University of Arterial blood by [place] [employer] boris Pulse oximetry Branch Systolic blood 2022-07-08 21:10:00 141 mm[Hg] Univer sity of pressure [place] [facility] Diastolic blood 2022-07-08 21:10:00 84 mm[Hg] Unive rsity of pressure [place] [facility] Heart rate 2022-07-08 21:10:00 91 /min [facility]i ty [facility] [place] [facility] Respiratory rate 2022-07-08 21:10:00 18 /min Univ ersity [facility] [place] [facility] Oxygen saturation in 2022-07-08 21:10:00 100 /min University of Arterial blood by [facility] Pulse oximetry Branch Body temperature 2022-07-08 17:36:00 36.67 Maira Univ ersity [facility] [place] [facility] Body height 2022-07-07 12:40:48 170.2 cm [facility] [place] [facility] Body weight 2022-07-07 12:40:48 58.968 kg [facility]i [facility] [place] [facility] BMI 2022-07-07 12:40:48 20.36 kg/m2 [facility] ty [facility] [place] [facility] Systolic blood 2022-07-07 15:55:00 135 mm[Hg] Univer sity of pressure [place] [facility] Diastolic blood 2022-07-07 15:55:00 55 mm[Hg] Unive rsity of pressure [place] [facility] Heart rate 2022-07-07 15:55:00 95 /min [facility]i ty [facility] [place] [facility] Respiratory rate 2022-07-07 15:55:00 18 /min Univ ersity of [place] [facility] Oxygen saturation in 2022-07-07 15:55:00 100 /min University of Arterial blood by [place] [employer] boris Pulse oximetry Branch Body temperature 2022-07-07 15:17:00 36.28 Maira Univ ersity [facility] [place] [facility] Body height 2022-07-07 12:40:48 170.2 cm [facility] Body weight 2022-07-07 12:40:48 58.968 kg [facility] BMI 2022-07-07 12:40:48 20.36 kg/m2 [facility] Procedures Procedure Date / Time Performing Clinician Source Performed BASIC METABOLIC PANEL 2022-07-08 10:16:00 Jannet Perez [facility] (NA, K, CL, CO2, GLUCOSE, [place] [place] BUN, CREATININE, [place]) CBC WITH DIFF 2022-07-08 10:16:[address] [facility] BASIC METABOLIC PANEL 2022-07-08 10:16:00 Jannet Perez [facility] (NA, K, CL, CO2, GL[facility]COSE, [place] [facility]UN, CREATININE, [place]) CBC WITH DIFF 2022-07-08 10:16:[address] [facility] COVID-19 (ID NOW RAPID 2022-07-07 19:31:00 Jannet Perez [facility] TESTING) [facility] LAB ONLY COVID 2022-07-07 19:31:00 Jannet Perez [facility] INTERPRETATION [facility] COVID-19 (ID NOW RAPID 2022-07-07 19:31:00 Jannet Perez [facility] TESTING) [facility] LAB ONLY COVID 2022-07-07 19:31:00 Jannet Perez [facility] INTERPRETATION [facility] XR CHEST 1 2022-07-07 14:05:[address] [facility] XR CHEST 1 2022-07-07 14:05:[address] [facility] CT HEAD WO CONTRAST 2022-07-07 14:02:00 Jannet Perez [facility] CT ANGIOGRAM UPPER 2022-07-07 14:02:00 Seferino Adams [facility] EXTREMITY RIGHT W Medical [place] CONTRAST CT MAXILLOFACIAL/MANDIBLE 2022-07-07 14:02:00 Jannet Perez [facility] WO CONTRAST [place] [place] CT HEAD WO CONTRAST 2022-07-07 14:02:00 Jannet Perez [facility] CT ANGIOGRAM UPPER 2022-07-07 14:02:00 Seferino Adams [facility] EXTREMITY RIGHT W Medical Branch CONTRAST CT MAXILLOFACIAL/MANDIBLE 2022-07-07 14:02:00 Jannet Perez [facility] WO CONTRAST [place] [facility] INTUBATION 2022-07-07 14:01:[address] [facility] o f [place] [facility] UPPER EXTREMITY 2022-07-07 13:39:00 Atkins [facility] o f [place] LACERATION REPAIR Medical Branch UPPER EXTREMITY 2022-07-07 13:39:00 Atkins, [facility] o [facility] LACERATION REPAIR [facility] Branch HB ABO GROUPING 2022-07-07 12:53:00 Angie [facility] HB ABO GROUPING 2022-07-07 12:53:00 Angie [facility] COMP. METABOLIC PANEL 2022-07-07 12:36:00 Angie [facility] ([id number]) [facility] CBC WITH DIFF 2022-07-07 12:36:00 Angie [facility] PROTHROMBIN TIME / INR 2022-07-07 12:36:00 Seferino Adams [facility] ACTIVATED PARTIAL 2022-07-07 12:36:00 Seferino Adams [facility] COMP. METABOLIC PANEL 2022-07-07 12:36:00 Angie [facility] ([id number]) [facility] CBC WITH DIFF 2022-07-07 12:36:00 Angie [facility] PROTHROMBIN TIME / INR 2022-07-07 12:36:00 Angie [facility] ACTIVATED PARTIAL 2022-07-07 12:36:00 Angie [facility] Encounters Start End Encounter Admission Attending Care Care Encounter Source Date/Time Date/Time Type Type Clinicians Facility Department ID 2023-03-27 2023-03-27 Outpatient NIECY MARTINES [id number] [place] 08:30:00 08:30:00 ILENE méndez 2023-03-13 2023-03-13 Outpatient NICOLENIECY ANDREA NIECY [id number] [place] 00:00:00 00:00:00 ILENE méndez 2022-08-06 2022-08-06 Letter Saranya Atkins [facility] [id number] Univers 00:00:00 00:00:00 (Out) HEALTH [id number] it y [id number] [id number] [address] OFFICE BUILDING 2022-08-06 2022-08-06 Telephone Surgery, [facility] [id number] Univers 00:00:00 00:00:00 Clc Bls HEALTH [id number] it y of Trauma & CLEAR [id number] Nikita as Acute Care [place] [id number] [address] OFFICE [facility] 2022-08-01 2022-08-01 Outpatient [id number] Univers 10:45:00 11:00:44 ity [facility] 2022-08-01 2022-08-01 Office Surgery, [place]oy s Trauma & Ac matheus Care [facility] [id number] Univers 10:45:00 11:00:44 Visit Saranya Atkins [facility] [id number] ity of [id number] [id number] [address] OFFICE BUILDING 2022-07-30 2022-07-30 Telephone [facility] [id number] Univers 00:00:00 00:00:00 SPECIALTY [id number] ity of C[id number] [place] [id number] Nc noé MARCOSY [address] [facility] 2022-07-29 2022-07-29 Outpatient R LIONEL CUEVAS [facility] [id number] Univers 14:45:00 14:45:00 ity [facility] 2022-07-22 2022-07-22 Outpatient R MASON LIONEL [facility] [id number] Univers 09:30:00 09:30:00 ity of [facility] 2022-07-15 2022-07-15 Telephone Saranya Atkins [facility] [id number] Univers 00:00:00 00:00:00 HEALTH [id number] it y [id number] [id number] [address] OFFICE BUILDING 2022-07-15 2022-07-15 Refill Kelvin [facility] [id number] Univers 00:00:00 00:00:00 Somk[place] HEALTH [id number] ity [id number] [id number] [address] ([facility]) 2022-07-11 2022-07-11 Office Saranya Atkins [facility] [id number] Univers 10:40:00 10:50:00 Visit HEALTH [id number] it y [id number] [id number] [address] OFFICE BUILDING 2022-07-11 2022-07-11 Outpatient R SARANYA ATKINS [facility] [id number] Univers 10:40:00 10:40:00 ity of [facility] 2022-07-07 2022-07-08 Outpatient X SARANYA ATKINS [facility] STR [id number] Univers 06:33:00 16:50:00 ity of [facility] 2022-07-07 2022-07-08 Emergency Abdiel Contreras [facility] 1.2.840. [id number] Univers 06:33:00 16:50:00 Elisa Atkinsang HEALTH [id number] ity of [id number] [id number] [address] ([facility]) 2022-07-07 2022-07-07 Surgery Saranya Atkins [facility] 1.2.840.114 [id number] Univers 07:55:00 09:58:00 HEALTH 350.1.13.10 it y of [place]2.7.2.[place] [id number] [facility] 020 Branch (CLC) 2022-07-07 2022-07-07 Anesthesia Cosmo He [facility] 1.2.840.114 [id number] Univers 07:53:00 09:15:00 Event Joseph Garcia [place] 350.1.13.10 [place] [id number] [place] [address] Branch ([facility]) Results Test Description Test Time Test Comments Results Result Comments Source CBC with Differential 2022-07-08 10:38:24 Test Item Value Reference Range Interpretation Comme nts WBC (test code = 6690-2) See_Comment H [A utomated message] The system which ge nerated this result transmit adri reference range: 4.20 - 1 0.70 10*3/?L. The reference r hawk was not used to interpr et this result as normal/abnor mal. RBC (test code = 789-8) See_Comment L [Au tomated message] The system which ge nerated this result transmit adri reference range: 4.26 - 5 .52 10*6/?L. The reference r hawk was not used to interpr et this result as normal/abnor mal. HGB (test code = 718-7) 8.9 g/dL 12.2-16.4 L HCT (test code = 4544-3) 26.2 % 38.4-49.3 L MCV (test code = 787-2) 90.0 fL 81.7-95.6 MCH (test code = 785-6) 30.6 pg 26.1-32.7 MCHC (test code = 786-4) 34.0 g/dL 31.2-35.0 RDW-SD (test code = 78522-3) 42.9 fL 38.5-51.6 RDW-CV (test code = 788-0) 13.0 % 12.1-15.4 PLT (test code = 777-3) See_Comment [Au tomated message] The system which ge nerated this result transmit adri reference range: 150 - 32 8 10*3/?L. The reference range was not used to interpret th is result as normal/abnormal . MPV (test code = 42065-7) 10.6 fL 9.8-13.0 NRBC/100 WBC (test code = See_Comment [ Automated message] The 5555325719) system which [employer] nerated this result transmit adri reference range: 0.0 - 10 .0 /100 WBCs. The reference r hawk was not used to interpr et this result as normal/abnor mal. NRBC x10^3 (test code = See_Comment [Au tomated message] The 6854343944) system which [employer] nerated this result transmit adri reference range: 10*3/?L. The reference range was not u sed to interpret this result as normal/abnormal . GRAN MAT (NEUT) % (test code 72.8 % = 770-8) IMM GRAN % (test code = 0.30 % 1812540711) LYMPH % (test code = 736-9) 17.6 % MONO % (test code = 5905-5) 9.0 % EOS % (test code = 713-8) 0.1 % BASO % (test code = 706-2) 0.2 % GRAN MAT x10^3(ANC) (test 8.84 10*3/uL 1.99-6.95 H code = 3212468805) IMM GRAN x10^3 (test code = 0.04 10*3/uL 0.00-0.06 0578275093) LYMPH x10^3 (test code = 2.14 10*3/uL 1.09-3.23 731-0) MONO x10^3 (test code = 1.09 10*3/uL 0.36-1.02 H 742-7) EOS x10^3 (test code = 0.06-0.53 L 711-2) BASO x10^3 (test code = 0.03 10*3/uL 0.01-0.09 704-7) Lab Interpretation (test Abnormal code = 87336-6) [facility] with [id number] 10:38:24 Test Item Value Reference Range Interpretation Comments WBC (test code = See_Comment H [Automated 6690-2) message] The sy stem which generated this result transmitted reference range : 4.20 - 10.70 10*3/?L. The reference range was not used to interpret this result as normal/abnormal . RBC (test code = See_Comment L [Automated 789-8) message] The sy stem which generated this result transmitted reference range : 4.26 - 5.52 10*6/?L. The reference range was not used to interpret this result as normal/abnormal . HGB (test code = 8.9 g/dL 12.2-16.4 L 718-7) HCT (test code = 26.2 % 38.4-49.3 L 4544-3) MCV (test code = 90.0 fL 81.7-95.6 787-2) MCH (test code = 30.6 pg 26.1-32.7 785-6) MCHC (test code = 34.0 g/dL 31.2-35.0 786-4) RDW-SD (test code = 42.9 fL 38.5-51.6 85462-0) RDW-CV (test code = 13.0 % 12.1-15.4 788-0) PLT (test code = See_Comment [Automated 777-3) message] The sy stem which generated this result transmitted reference range : 150 - 328 10*3/ ?L. The reference r hawk was not used to interpret this result as normal/abnormal . MPV (test code = 10.6 fL 9.8-13.0 67453-3) NRBC/100 WBC (test See_Comment [Automat ed code = 3052470283) message] The system which generated this result transmitted reference range : 0.0 - 10.0 /100 WBCs. The refer ence range was not u sed to interpret th is result as normal/abnormal . NRBC x10^3 (test code See_Comment [Auto mated = 6916387578) message] The s ystem which generated this result transmitted reference range : 10*3/?L. The reference range was not used to interpret this result as normal/abnormal . GRAN MAT (NEUT) % 72.8 % (test code = 770-8) IMM GRAN % (test code 0.30 % = 2030633179) LYMPH % (test code = 17.6 % 736-9) MONO % (test code = 9.0 % 5905-5) EOS % (test code = 0.1 % 713-8) BASO % (test code = 0.2 % 706-2) GRAN MAT x10^3(ANC) 8.84 10*3/uL 1.99-6.95 H (test code = 7080158046) IMM GRAN x10^3 (test 0.04 10*3/uL 0.00-0.06 code = 6148295671) LYMPH x10^3 (test code 2.14 10*3/uL 1.09-3.23 = 731-0) MONO x10^3 (test code 1.09 10*3/uL 0.36-1.02 H = 742-7) EOS x10^3 (test code = 0.06-0.53 L 711-2) BASO x10^3 (test code 0.03 10*3/uL 0.01-0.09 = 704-7) Lab Interpretation Abnormal (test code = 52982-5) [facility] Metabolic Panel (NA, K, CL, CO2, Glucose, BUN, Creatinine, CA)2022-07-08 10:37:03 Test Item Value Reference Range Interpretation Comments NA (test code = 134 mmol/L 135-145 L 9260271311) K (test code = 3.9 mmol/L 3.5-5.0 Slight 1550055619) hemolysis CL (test code = 104 mmol/L 98-108 7211227735) CO2 TOTAL (test code 28 mmol/L 23-31 = 2191129759) AGAP (test code = 2-16 9641954619) BUN (test code = 9 mg/dL 7-23 Slight 5837665386) hemolysis GLUCOSE (test code = 105 mg/dL 70-110 4757055082) CREATININE (test code 0.79 mg/dL 0.60-1.25 = 4531341870) CALCIUM (test code = 7.7 mg/dL 8.6-10.6 L 4604927760) eGFR (test code = mL/min/1.73m2 6560043604) PRITESH (test code = PRITESH) Association of Glomerular Filtration Rate (GFR) and Staging of Kidney Disease* + -----+ --------+ +| GFR (mL/min/1.73 m2) ?| With Kidney Damage ?| ?Without Kidney Damage+ +------- +---- --+| ?>90 ?| ?Stage one ?| ? Normal ?+ ------+ ---------+--------- +| ?60-89 ?| ?Stage two ?| ? Decreased GFR ? + -----+ --------+ +| ?30-59 ?| ?Stage three ?| ? Stage three ? + -----+ --------+ +| ?15-29 ?| ?Stage four ? | ? Stage four ?+ ------+ ---------+--------- +| ?<15 (or dialysis) ? ?| ?Stage five ? | ? Stage five ?+ ------+ ---------+--------- + *Each stage assumes the associated GFR level has been in effect for at least three months. ?Stages 1 to 5, with or without kidney disease, indicate chronic kidney disease. Notes: Determination of stages one and two (with eGFR >59mL/min/1.73 m2) requires estimation of kidney damage for at least three months as defined by structural or functional abnormalities of the kidney, manifested by either:Pathological abnormalities or Markers of kidney damage (including abnormalities in the composition of the blood or urine or abnormalities in imaging tests). Lab Interpretation Abnormal (test code = 76488-8) [facility] (NA, K, CL, CO2, Glucose, BUN, Creatinine, CA)2022-07-08 10:37:03 Test Item Value Reference Range Interpretation Comments NA (test code = 134 mmol/L 135-145 L 3334751947) K (test code = 3.9 mmol/L 3.5-5.0 Slight 6561490492) hemolysis CL (test code = 104 mmol/L 98-108 4080137477) CO2 TOTAL (test code 28 mmol/L 23-31 = 7390066757) AGAP (test code = 2-16 4745297273) BUN (test code = 9 mg/dL 7-23 Slight 5962431913) hemolysis GLUCOSE (test code = 105 mg/dL 70-110 7409997708) CREATININE (test code 0.79 mg/dL 0.60-1.25 = 4771391080) CALCIUM (test code = 7.7 mg/dL 8.6-10.6 L 4253475926) eGFR (test code = mL/min/1.73m2 4701716485) PRITESH (test code = PRITESH) Association of Glomerular Filtration Rate (GFR) and Staging of Kidney Disease* + -----+ --------+ +| GFR (mL/min/1.73 m2) ?| With Kidney Damage ?| ?Without Kidney Damage+ +------- +---- --+| ?>90 ?| ?Stage one ?| ? Normal ?+ ------+ ---------+--------- +| ?60-89 ?| ?Stage two ?| ? Decreased GFR ? + -----+ --------+ +| ?30-59 ?| ?Stage three ?| ? Stage three ? + -----+ --------+ +| ?15-29 ?| ?Stage four ? | ? Stage four ?+ ------+ ---------+--------- +| ?<15 (or dialysis) ? ?| ?Stage five ? | ? Stage five ?+ ------+ ---------+--------- + *Each stage assumes the associated GFR level has been in effect for at least three months. ?Stages 1 to 5, with or without kidney disease, indicate chronic kidney disease. Notes: Determination of stages one and two (with eGFR >59mL/min/1.73 m2) requires estimation of kidney damage for at least three months as defined by structural or functional abnormalities of the kidney, manifested by either:Pathological abnormalities or Markers of kidney damage (including abnormalities in the composition of the blood or urine or abnormalities in imaging tests). Lab Interpretation Abnormal (test code = 34438-6) [facility] [id number] 13:23:56 Test Item Value Reference Range Interpretation Comments ABO & RH (test AB Positive Performed at [facility] code = 20) Laboratory Serv [facility] [address] [place], [place] [address] 4Toll Free: [phone] 266CLIA No. [id number] IAT (test code = Negative Performed a t [facility] 1185) Laboratory [facility] [address] [place] [address] 4Toll Free: [phone] 266CLIA No. [id number] General acute hospital and Screen - ONCE [id number] 13:23:56 Test Item Value Reference Range Interpretation Comments ABO & RH (test AB Positive Performed at [facility] code = 20) Laboratory Serv [facility] [address] [place], [place] [address] 4Toll Free: [phone] 266CLIA No. [id number] IAT (test code = Negative Performed a t [facility] 1185) Laboratory Serv [facility] [address] [place], [place] [address] 4Toll Free: [phone] 266CLIA No. [id number] [facility] WITH [id number] 13:09:47 Test Item Value Reference Range Interpretation Comments WBC (test code = See_Comment H [Automated 4426-2) message] The system which generated this result transmit adri reference range : 4.20 - 10.70 10*3/?L. The reference range was not used to interpret this result as normal/abnormal . RBC (test code = See_Comment L [Automated 539-8) message] The system which generated this result transmit adri reference range : 4.26 - 5.52 10*6/?L. The reference range was not used to interpret this result as normal/abnormal . HGB (test code = 12.2 g/dL 12.2-16.4 718-7) HCT (test code = 35.2 % 38.4-49.3 L 4544-3) MCV (test code = 90.5 fL 81.7-95.6 787-2) MCH (test code = 31.4 pg 26.1-32.7 785-6) MCHC (test code = 34.7 g/dL 31.2-35.0 786-4) RDW-SD (test code = 42.7 fL 38.5-51.6 22202-0) RDW-CV (test code = 13.0 % 12.1-15.4 788-0) PLT (test code = See_Comment [Automated 777-3) message] The system which generated this result transmit adri reference range : 150 - 328 10*3/ ?L. The reference range was not u sed to interpret th is result as normal/abnormal . MPV (test code = 9.8 fL 9.8-13.0 63180-5) NRBC/100 WBC (test See_Comment [Automat ed code = 8473383253) message] The system which generated this result transmit adri reference range : 0.0 - 10.0 /100 WBCs. The reference range was not used to interpret this result as normal/abnormal . NRBC x10^3 (test code See_Comment [Auto mated = 1578663713) message] The system which generated this result transmit adri reference range : 10*3/?L. The reference range was not used to interpret this result as normal/abnormal . GRAN MAT (NEUT) % 84.4 % (test code = 770-8) IMM GRAN % (test code 0.50 % = 7122597011) LYMPH % (test code = 6.5 % 736-9) MONO % (test code = 8.1 % 5905-5) EOS % (test code = 0.3 % 713-8) BASO % (test code = 0.2 % 706-2) GRAN MAT x10^3(ANC) 18.32 10*3/uL 1.99-6.95 H (test code = 7723427869) IMM GRAN x10^3 (test 0.11 10*3/uL 0.00-0.06 H code = 3976760490) LYMPH x10^3 (test code 1.41 10*3/uL 1.09-3.23 = 731-0) MONO x10^3 (test code 1.76 10*3/uL 0.36-1.02 H = 742-7) EOS x10^3 (test code = 0.06 10*3/uL 0.06-0.53 711-2) BASO x10^3 (test code 0.04 10*3/uL 0.01-0.09 = 704-7) Lab Interpretation Abnormal (test code = 40320-8) [facility] WITH [id number] 13:09:47 Test Item Value Reference Range Interpretation Comments WBC (test code = See_Comment H [Automated 6690-2) message] The system which generated this result transmit adri reference range : 4.20 - 10.70 10*3/?L. The reference range was not used to interpret this result as normal/abnormal . RBC (test code = See_Comment L [Automated 789-8) message] The system which generated this result transmit adri reference range : 4.26 - 5.52 10*6/?L. The reference range was not used to interpret this result as normal/abnormal . HGB (test code = 12.2 g/dL 12.2-16.4 718-7) HCT (test code = 35.2 % 38.4-49.3 L 4544-3) MCV (test code = 90.5 fL 81.7-95.6 787-2) MCH (test code = 31.4 pg 26.1-32.7 785-6) MCHC (test code = 34.7 g/dL 31.2-35.0 786-4) RDW-SD (test code = 42.7 fL 38.5-51.6 03643-7) RDW-CV (test code = 13.0 % 12.1-15.4 788-0) PLT (test code = See_Comment [Automated 777-3) message] The system which generated this result transmit adri reference range : 150 - 328 10*3/ ?L. The reference range was not u sed to interpret th is result as normal/abnormal . MPV (test code = 9.8 fL 9.8-13.0 47764-6) NRBC/100 WBC (test See_Comment [Automat ed code = 9992260695) message] The system which generated this result transmit adri reference range : 0.0 - 10.0 /100 WBCs. The reference range was not used to interpret this result as normal/abnormal . NRBC x10^3 (test code See_Comment [Auto mated = 7393903300) message] The system which generated this result transmit adri reference range : 10*3/?L. The reference range was not used to interpret this result as normal/abnormal . GRAN MAT (NEUT) % 84.4 % (test code = 770-8) IMM GRAN % (test code 0.50 % = 2287259970) LYMPH % (test code = 6.5 % 736-9) MONO % (test code = 8.1 % 5905-5) EOS % (test code = 0.3 % 713-8) BASO % (test code = 0.2 % 706-2) GRAN MAT x10^3(ANC) 18.32 10*3/uL 1.99-6.95 H (test code = 1691309514) IMM GRAN x10^3 (test 0.11 10*3/uL 0.00-0.06 H code = 9896650423) LYMPH x10^3 (test code 1.41 10*3/uL 1.09-3.23 = 731-0) MONO x10^3 (test code 1.76 10*3/uL 0.36-1.02 H = 742-7) EOS x10^3 (test code = 0.06 10*3/uL 0.06-0.53 711-2) BASO x10^3 (test code 0.04 10*3/uL 0.01-0.09 = 704-7) Lab Interpretation Abnormal (test code = 42424-3) [facility] [id number] 13:07:56 Test Item Value Reference Range Interpretation Comments APTT Patient (test code See_Comment L No c lot [Automated = 3173-2) message] The sy stem which generated this result transmit adri reference range : 26 - 36 Seconds. The reference range was not used to int erpret this result as normal/abnormal . Lab Interpretation (test Abnormal code = 21973-6) [facility] [id number] 13:07:56 Test Item Value Reference Range Interpretation Comments APTT Patient (test code See_Comment L No c lot [Automated = 3173-2) message] The sy stem which generated this result transmit adri reference range : 26 - 36 Seconds. The reference range was not used to int erpret this result as normal/abnormal . Lab Interpretation (test Abnormal code = 59311-5) [facility] / [id number] 13:06:50 Test Item Value Reference Range Interpretation Comments PROTIME PATIENT (test See_Comment H [Auto mated message] code = 5964-2) The system wh ich generated this result transmitted ref erence range: 10.1 - 1 2.6 Seconds. The reference range was not used to int erpret this result as normal/abnormal . INR (test code = 6301-6) Nor mal INR <1.1; Warfarin Therap eutic range 2.0 to 3. 0 or 2.5 to 3.5, dep ending upon the indica tions. Lab Interpretation (test Abnormal code = 17511-3) [facility] / [id number] 13:06:50 Test Item Value Reference Range Interpretation Comments PROTIME PATIENT (test See_Comment H [Auto mated message] code = 5964-2) The system [employer] generated this result transmitted ref erence range: 10.1 - 1 2.6 Seconds. The reference range was not used to int erpret this result as normal/abnormal . INR (test code = 6301-6) Nor mal INR <1.1; Warfarin Therap eutic range 2.0 to 3. 0 or 2.5 to 3.5, dep ending upon the indica tions. Lab Interpretation (test Abnormal code = 03688-4) [facility] METABOLIC PANEL ([id number])2022-07-07 12:56:45 Test Item Value Reference Range Interpretation Comments NA (test code = 143 mmol/L 135-145 2438212544) K (test code = 3.8 mmol/L 3.5-5.0 0201230768) CL (test code = 111 mmol/L 98-108 H 7196577117) CO2 TOTAL (test code = 21 mmol/L 23-31 L 6008527321) AGAP (test code = 2-16 8183229810) BUN (test code = 10 mg/dL 7-23 5118960753) GLUCOSE (test code = 107 mg/dL 70-110 1252949433) CREATININE (test code = 1.03 mg/dL 0.60-1.25 4654789157) TOTAL BILI (test code = 0.3 mg/dL 0.1-1.3 1648054419) CALCIUM (test code = 7.4 mg/dL 8.6-10.6 L 5488144360) T PROTEIN (test code = 5.2 g/dL 6.3-8.2 L 9704362611) ALBUMIN (test code = 3.2 g/dL 3.5-5.0 L 8900802578) ALK PHOS (test code = 46 U/L 34-122 6780186993) ALTv (test code = 16 U/L 5-50 1742-6) AST(SGOT) (test code = 43 U/L 13-40 H 4391352920) eGFR (test code = mL/min/1.73m2 8806905583) PRITESH (test code = PRITESH) Association of Glomerular Filtration Rate (GFR) and Staging of Kidney Disease* + --+ --+ ------+| GFR (mL/min/1.73 m2) ?| With Kidney Damage ?| ?Without Kidney Damage+ --------+ --------+ +| ?>90 ?| ?Stage one ?| ? Normal ?+ ---+ ---+ -------+| ?60-89 ?| ?Stage two ?| ? Decreased GFR ? + --+ --+ ------+| ?30-59 ?| ?Stage three ?| ? Stage three ? + --+ --+ ------+| ?15-29 ?| ?Stage four ? | ? Stage four ?+ ---+ ---+ -------+| ?<15 (or dialysis) ? ?| ?Stage five ? | ? Stage five ?+ ---+ ---+ -------+ *Each stage assumes the associated GFR level has been in effect for at least three months. ?Stages 1 to 5, with or without kidney disease, indicate chronic kidney disease. Notes: Determination of stages one and two (with eGFR >59mL/min/1.73 m2) requires estimation of kidney damage for at least three months as defined by structural or functional abnormalities of the kidney, manifested by either:Pathological abnormalities or Markers of kidney damage (including abnormalities in the composition of the blood or urine or abnormalities in imaging tests). Lab Interpretation Abnormal (test code = 86573-8) [facility]. METABOLIC PANEL ([id number])2022-07-07 12:56:45 Test Item Value Reference Range Interpretation Comments NA (test code = 143 mmol/L 135-145 1763880251) K (test code = 3.8 mmol/L 3.5-5.0 9455201611) CL (test code = 111 mmol/L 98-108 H 3121633319) CO2 TOTAL (test code = 21 mmol/L 23-31 L 4988248528) AGAP (test code = 2-16 3505122527) BUN (test code = 10 mg/dL 7-23 3821612781) GLUCOSE (test code = 107 mg/dL 70-110 1741745011) CREATININE (test code = 1.03 mg/dL 0.60-1.25 2666006175) TOTAL BILI (test code = 0.3 mg/dL 0.1-1.2 8232825242) CALCIUM (test code = 7.4 mg/dL 8.6-10.6 L 3735227961) T PROTEIN (test code = 5.2 g/dL 6.3-8.2 L 4010382527) ALBUMIN (test code = 3.2 g/dL 3.5-5.0 L 9327348449) ALK PHOS (test code = 46 U/L 34-122 7153809436) ALTv (test code = 16 U/L 5-50 1742-6) AST(SGOT) (test code = 43 U/L 13-40 H 8681628438) eGFR (test code = mL/min/1.73m2 0385624187) PRITESH (test code = PRITESH) Association of Glomerular Filtration Rate (GFR) and Staging of Kidney Disease* + --+ --+ ------+| GFR (mL/min/1.73 m2) ?| With Kidney Damage ?| ?Without Kidney Damage+ --------+ --------+ +| ?>90 ?| ?Stage one ?| ? Normal ?+ ---+ ---+ -------+| ?60-89 ?| ?Stage two ?| ? Decreased GFR ? + --+ --+ ------+| ?30-59 ?| ?Stage three ?| ? Stage three ? + --+ --+ ------+| ?15-29 ?| ?Stage four ? | ? Stage four ?+ ---+ ---+ -------+| ?<15 (or dialysis) ? ?| ?Stage five ? | ? Stage five ?+ ---+ ---+ -------+ *Each stage assumes the associated GFR level has been in effect for at least three months. ?Stages 1 to 5, with or without kidney disease, indicate chronic kidney disease. Notes: Determination of stages one and two (with eGFR >59mL/min/1.73 m2) requires estimation of kidney damage for at least three months as defined by structural or functional abnormalities of the kidney, manifested by either:Pathological abnormalities or Markers of kidney damage (including abnormalities in the composition of the blood or urine or abnormalities in imaging tests). Lab Interpretation Abnormal (test code = 38030-6) [facility]
--- NOTE | 2023-03-17 20:21 | ER ---
Nurse's Notes [facility] Name: Jess Bautista Age: 28 yrs Sex: Male : 1995 Arrival Date: 03/17/2023 Time: 18:59 Bed 5 Private MD: Diagnosis: Heat exhaustion, unspecified Presentation: 03/17 19:20 Chief complaint: Patient states: "I think i have heat exhaustion. I have been working ll1 outside and work is telling me to come get checked out". Coronavirus screen: At this time, the client does not indicate any symptoms associated with coronavirus-19. Ebola Screen: No symptoms or risks identified at this time. Initial Sepsis Screen: Does the patient meet any 2 criteria? No. Patient's initial sepsis screen is negative. Does the patient have a suspected source of infection? No. Patient's initial sepsis screen is negative. Risk Assessment: Do you want to hurt yourself or someone else? Patient reports no desire to harm self or others. Onset of symptoms was March 17, 2023. 19:20 Method Of Arrival: Ambulatory ll1 19:20 Acuity: AGNES 3 ll1 Historical: - Allergies: 19:23 No Known Allergies; ll1 - PMHx: 19:23 None; ll1 - PSHx: 19:23 arm; ll1 - Immunization history:: Client reports having NOT received the Covid vaccine. - Social history:: Smoking status: Reported history of juuling and/or vaping. Screenin:06 [facility] ED Fall Risk Assessment (Adult) Score/Fall Risk Level 0 - 2 = Low Risk. Abuse as6 screen: Denies threats or abuse. Denies injuries from another. Nutritional screening: No deficits noted. Tuberculosis screening: No symptoms or risk factors identified. Assessment: 19:20 General: Appears in no apparent distress. Behavior is calm, cooperative. General: as6 Reports fatigue for. Pain: Complains of pain in generalized Quality of pain is described as crampy. Neuro: Level of Consciousness is awake, alert, obeys commands, Oriented to person, place, time, situation. Cardiovascular: Capillary refill < 3 seconds Patient's skin is warm and dry. Respiratory: Respiratory effort is even, unlabored, Respiratory pattern is regular, symmetrical. EENT: Oral mucosa is dry. Derm: Skin is dry. Musculoskeletal: Reports muscle cramps. 20:29 General: discharge pending fluid completion . as6 22:00 Reassessment: Patient appears in no apparent distress at this time. Patient and/or jb4 family updated on plan of care and expected duration. Pain level reassessed. Patient is alert, oriented x 3, equal unlabored respirations, skin warm/dry/pink. 23:13 Reassessment: Patient appears in no apparent distress at this time. Patient and/or jb4 family updated on plan of care and expected duration. Pain level reassessed. Patient is alert, oriented x 3, equal unlabored respirations, skin warm/dry/pink. 03/18 00:33 Reassessment: Patient appears in no apparent distress at this time. Patient and/or jb4 family updated on plan of care and expected duration. Pain level reassessed. Patient is alert, oriented x 3, equal unlabored respirations, skin warm/dry/pink. 01:17 Reassessment: ER physician clear pt to be discharged after viewing new lab results. [facility] Vital Signs: 03/17 19:20 BP 145 / 87; Pulse 84; Resp 20 S; Temp 98.1(O); Pulse Ox 100% on R/A; Weight 61.23 kg ll1 (R); Height 5 ft. 7 in. (R); Pain 8/10; 23:13 BP 124 / 60; Pulse 89; Resp 16; Pulse Ox 100% ; jb4 03/18 00:33 BP 117 / 59; Pulse 72; Resp 16; Pulse Ox 99% on R/A; jb4 03/17 19:20 Body Mass Index 21.14 (61.23 kg, 170.18 cm) ll1 03/17 19:20 Pain Scale: Adult ll1 ED Course: 03/17 19:02 Patient arrived in ED. am2 19:04 Walter Zamudio MD is Attending Physician. phoebe 19:23 Triage completed. ll1 19:23 Arm band placed on. ll1 20:18 XRAY Chest (1 view) In Process Unspecified. EDMS 20:28 Yeison Florence, FREDY is Primary Nurse. as6 20:51 Inserted saline lock: 20 gauge in right upper arm, using aseptic technique. ultrasound as6 guided. 22:45 Bed in low position. Call light in reach. as6 03/18 01:17 No provider procedures requiring assistance completed. IV discontinued, intact, jb4 bleeding controlled, No redness/swelling at site. Pressure dressing applied. Administered Medications: 03/17 21:08 Drug: NS 0.9% IV 1000 ml Route: IV; Rate: 1 bolus; Site: left upper arm; as6 21:08 Drug: NS 0.9% IV 1000 ml Route: IV; Rate: 1 bolus; Site: left upper arm; as6 22:04 Drug: Lactated Ringers Solution IV 1000 ml Route: IV; Rate: 1000 bolus; Site: left as6 upper arm; Medication: 22:06 VIS not applicable for this client. as6 Outcome: 20:21 Discharge ordered by MD. sandhu 03/18 01:17 Discharged to home ambulatory. jb4 Condition: stable Discharge instructions given to patient, Instructed on discharge instructions, follow up and referral plans. Demonstrated understanding of instructions, follow-up care. 01:18 Patient left the ED. jb4 Signatures: Dispatcher [employer] EDMS Walter Zamudio MD MD cha Bryson, James, RN RN jb4 Filomena Meneses am2 Krista Marie, RN RN ll1 Yeison Florence, FREDY RN as6 Corrections: (The following items were deleted from the chart) 03/17 19:23 19:23 PSHx: None; ll1 ll1
--- NOTE | 2023-03-17 20:21 | EDPHYS ---
Physician Documentation [facility] Name: Jess Bautista Age: 28 yrs Sex: Male : 1995 Arrival Date: 03/17/2023 Time: 18:59 Bed 5 Private MD: ED Physician Walter Zamudio HPI: 03/17 20:04 This 28 yrs old Male presents to ER via Ambulatory with complaints of Heat phoebe Exposure, Doesn't Feel Right. 20:04 IN HEAT ALL DAY, HEAT EXHAUSTION. Onset: The symptoms/episode began/occurred 1 day(s) phoebe ago. Severity of symptoms: At their worst the symptoms were mild moderate in the emergency department the symptoms are unchanged. The patient has experienced similar episodes in the past, a few times. Historical: - Allergies: 19:23 No Known Allergies; ll1 - PMHx: 19:23 None; ll1 - PSHx: 19:23 arm; ll1 - Immunization history:: Client reports having NOT received the Covid vaccine. - Social history:: Smoking status: Reported history of juuling and/or vaping. ROS: 20:05 Constitutional: Negative for fever, chills, and weight loss, Eyes: Negative for injury, phoebe pain, redness, and discharge, ENT: Negative for injury, pain, and discharge, Neck: Negative for injury, pain, and swelling, Cardiovascular: Negative for chest pain, palpitations, and edema, Respiratory: Negative for shortness of breath, cough, wheezing, and pleuritic chest pain, Abdomen/GI: Negative for abdominal pain, nausea, vomiting, diarrhea, and constipation, Back: Negative for injury and pain, : Negative for injury, bleeding, discharge, and swelling, MS/Extremity: Negative for injury and deformity, Skin: Negative for injury, rash, and discoloration, Neuro: Negative for headache, weakness, numbness, tingling, and seizure, Psych: Negative for depression, anxiety, suicide ideation, homicidal ideation, and hallucinations, Allergy/Immunology: Negative for hives, rash, and allergies, Endocrine: Negative for neck swelling, polydipsia, polyuria, polyphagia, and marked weight changes, Hematologic/Lymphatic: Negative for swollen nodes, abnormal bleeding, and unusual bruising. 20:05 Neuro: Positive for weakness. Exam: 20:05 Constitutional: This is a well developed, well nourished patient who is awake, alert, phoebe and in no acute distress. Head/Face: Normocephalic, atraumatic. Eyes: Pupils equal round and reactive to light, extra-ocular motions intact. Lids and lashes normal. Conjunctiva and sclera are non-icteric and not injected. Cornea within normal limits. Periorbital areas with no swelling, redness, or edema. ENT: Nares patent. No nasal discharge, no septal abnormalities noted. Tympanic membranes are normal and external auditory canals are clear. Oropharynx with no redness, swelling, or masses, exudates, or evidence of obstruction, uvula midline. Mucous membranes moist. Neck: Trachea midline, no thyromegaly or masses palpated, and no cervical lymphadenopathy. Supple, full range of motion without nuchal rigidity, or vertebral point tenderness. No Meningismus. Chest/axilla: Normal chest wall appearance and motion. Nontender with no deformity. No lesions are appreciated. Cardiovascular: Regular rate and rhythm with a normal S1 and S2. No gallops, murmurs, or rubs. Normal PMI, no JVD. No pulse deficits. Respiratory: Lungs have equal breath sounds bilaterally, clear to auscultation and percussion. No rales, rhonchi or wheezes noted. No increased work of breathing, no retractions or nasal flaring. Abdomen/GI: Soft, non-tender, with normal bowel sounds. No distension or tympany. No guarding or rebound. No evidence of tenderness throughout. Back: No spinal tenderness. No costovertebral tenderness. Full range of motion. Male : Normal genitalia with no discharge or lesions. Skin: Warm, dry with normal turgor. Normal color with no rashes, no lesions, and no evidence of cellulitis. MS/ Extremity: Pulses equal, no cyanosis. Neurovascular intact. Full, normal range of motion. Neuro: Awake and alert, GCS 15, oriented to person, place, time, and situation. Cranial nerves II-XII grossly intact. Motor strength 5/5 in all extremities. Sensory grossly intact. Cerebellar exam normal. Normal gait. Psych: Awake, alert, with orientation to person, place and time. Behavior, mood, and affect are within normal limits. 20:05 ECG was reviewed by the Attending Physician. Vital Signs: 19:20 BP 145 / 87; Pulse 84; Resp 20 S; Temp 98.1(O); Pulse Ox 100% on R/A; Weight 61.23 kg ll1 (R); Height 5 ft. 7 in. (R); Pain 8/10; 23:13 BP 124 / 60; Pulse 89; Resp 16; Pulse Ox 100% ; jb4 03/18 00:33 BP 117 / 59; Pulse 72; Resp 16; Pulse Ox 99% on R/A; jb4 03/17 19:20 Body Mass Index 21.14 (61.23 kg, 170.18 cm) ll1 03/17 19:20 Pain Scale: Adult ll1 MDM: 03/17 19:04 Patient medically screened. [facility] 20:06 Differential Diagnosis altered mental status, sepsis. Data reviewed: vital signs, [facility] nurses notes, lab test result(s), EKG, radiologic studies, plain films. Consideration of Admission/Observation Escalation of care including admission/observation considered. I considered the following discharge prescriptions or medication management in the emergency department Medications were administered in the Emergency Department. See MAR. Independent interpretation of the following test(s) in the Emergency Department EKG: See my EKG interpretation above. Test considered but Not performed: CT: NO CT HEAD. Care significantly affected by the following chronic conditions: NONE. Counseling: I had a detailed discussion with the patient and/or guardian regarding: the historical points, exam findings, and any diagnostic results supporting the discharge/admit diagnosis, lab results, radiology results, the need for outpatient follow up, for definitive care, a family practitioner. 03/17 19:04 Order name: Basic Metabolic Panel; Complete Time: 22:41 [facility] 03/17 19:04 Order name: CBC with Diff; Complete Time: 22:42 [facility] 03/17 19:04 Order name: LFT's; Complete Time: 22:42 [facility] 03/17 19:04 Order name: Magnesium; Complete Time: 22:42 [facility] 03/17 19:04 Order name: NT PRO-BNP; Complete Time: 22:42 [facility] 03/17 19:04 Order name: Troponin HS; Complete Time: 22:42 [facility] 03/17 19:04 Order name: CPK; Complete Time: 22:42 [facility] 03/17 19:04 Order name: Urinalysis w/ reflexes [facility] 03/17 21:57 Order name: CPK as6 03/17 21:57 Order name: Chem 7 [facility] 03/17 19:04 Order name: XRAY Chest (1 view); Complete Time: 22:42 [facility] 03/17 19:04 Order name: EKG; Complete Time: 19:05 [facility] 03/17 19:04 Order name: Cardiac monitoring; Complete Time: 23:30 [facility] 03/17 19:04 Order name: EKG - Nurse/Tech; Complete Time: 19:51 [facility] 03/17 19:04 Order name: IV Saline Lock; Complete Time: 20:51 [facility] 03/17 19:04 Order name: Labs collected and sent; Complete Time: 19:36 [facility] 03/17 19:04 Order name: O2 Per Protocol; Complete Time: 23:30 [facility] 03/17 19:04 Order name: O2 Sat Monitoring; Complete Time: 23:30 [facility] 03/17 19:55 Order name: Labs - recollect needed: green top please- hemolyzed; Complete Time: 20:51 [facility] [place] 03/17 19:57 Order name: Labs - recollect needed: lavender ; Complete Time: 20:51 [facility] [place] 03/17 20:21 Order name: PO challenge: GATORADE; Complete Time: 20:51 [facility] EC:05 Rate is 71 beats/min. Rhythm is regular. QRS [place] is Normal. IA interval is normal. QRS phoebe interval is normal. QT interval is normal. No Q waves. T waves are Normal. No ST changes noted. Clinical impression: Normal ECG and No evidence of ischemia. Interpreted by me. Reviewed by me. Administered Medications: 21:08 Drug: NS 0.9% IV 1000 ml Route: IV; Rate: 1 bolus; Site: left upper arm; as6 21:08 Drug: NS 0.9% IV 1000 ml Route: IV; Rate: 1 bolus; Site: left upper arm; as6 22:04 Drug: Lactated Ringers Solution IV 1000 ml Route: IV; Rate: 1000 bolus; Site: left as6 upper arm; Disposition Summary: 03/17/23 20:21 Discharge Ordered Location: Home phoebe Problem: new phoebe Symptoms: have improved phoebe Condition: Stable phoebe Diagnosis - Heat exhaustion, unspecified phoebe Followup: phoebe - With: Private Physician - When: 2 - 3 days - Reason: Recheck today's complaints, Continuance of care, Re-evaluation by your physician Discharge Instructions: - Discharge Summary Sheet phoebe - Weakness phoebe - Heat Exhaustion phoebe - Weakness, [id number] phoebe - Preventing Heat Exhaustion, Adult pheobe - Heat Stroke phoebe Forms: - Medication Reconciliation Form phoebe - Thank You Letter phoebe - Antibiotic Education phoebe - Prescription Opioid Use phoebe - Patient Portal Instructions phoebe - Work release form jb4 Signatures: Dispatcher [employer] Walter Ricks MD MD cha Attema, Lee, MANAGER PRIMARY CARE-C MANAGER PRIMARY CARE-Cla1 Krista Marie RN RN ll1 Yeison Florence RN RN as6 Erica Ramirez 5 Corrections: (The following items were deleted from the chart) 19:23 19:23 PSHx: None; ll1 ll1
--- NOTE | 2023-03-17 20:25 | RAD REPORT ---
EXAM DESCRIPTION: Brenda Single View03/17/2023 8:16 pm CLINICAL HISTORY: Chest pain COMPARISON: none FINDINGS: The lungs appear clear of acute infiltrate. The heart is normal size IMPRESSION: No acute abnormalities displayed
[2023-03-17 21:03] LABS: Absolute Lymphocytes (CBC) 0.9 K/uL (0.7-4.9); Hematocrit 47.1 % (39.6-49.0); Lymphocytes % 9.4 % (15.3-44.8); MCV 91.3 fL (80-100); MPV 8.8 fL (7.6-11.3); RBC Red Blood Cell Count 5.15 M/uL (4.33-5.43)
[2023-03-17] MEDS ORDERED: NA CHLORIDE 0.9% 1,000 ML ONE (21:15)
[2023-03-17 21:31] LABS: Albumin 5.3 g/dL (3.4-5.0); Bilirubin Direct 0.2 mg/dL (0-0.2); Bilirubin Indirect, Calculated 0.8 mg/dL (0.2-0.8); Protein, Total 9.4 g/dL (6.4-8.2)
[2023-03-17 21:32] LABS: Magnesium 2.7 mg/dL (1.6-2.4); Potassium 5.1 mEq/L (3.5-5.1)
[2023-03-17 21:45] LABS: Troponin High Sensitivity 13.4 pg/mL (<58.9)
[2023-03-17] MEDS ORDERED: Ringers Lactate 1,000 ML IV ONE (22:11)
[2023-03-18 00:41] LABS: Calcium Oxalate Crystals- Ur Few /HPF (None Seen); Specific Gravity 1.029 (1.005-1.030); Urine Bacteria None Seen /HPF (<20); Urine Bilirubin NEGATIVE (Negative); Urine Blood Negative (Negative); Urine Clarity Turbid (Clear); Urine Color Yellow (Yellow); Urine Glucose NEGATIVE (Negative); Urine Mucus 1+ /HPF (None Seen); Urine Protein 1+ (Negative); Urine RBC <5 /HPF (None Seen); Urine Urobilinogen Normal (Normal); Urine pH 5.5 (5.0-7.0)
[2023-03-18 00:52] LABS: Potassium 3.7 mEq/L (3.5-5.1)
[2023-03-18 03:23] VITALS: TEMP 98.1
[2023-03-18 03:30] VITALS: BP 117/59; O2SAT 99
--- NOTE | 2023-03-18 20:39 | EKG ---
Test Date: 2023-03-17 Test Time: 19:49:05 Certification Engineer: MEASUREMENT RESULTS: Intervals: Rate: 71 AR: 130 QRSD: 84 QT: 356 QTc: 386 [place]: P: 75 AR: 130 QRS: 90 T: 79 INTERPRETIVE STATEMENTS: Normal sinus rhythm Normal ECG No previous ECG available for comparison Electronically Signed On 03-18-23 20:37:38 CDT by Mukund Cline
== END 2023-03-18 01:18 | disposition home or self-care (01) ==
LOC: ER 18:59
DX: T67.5XXA Heat exhaustion, unspecified, initial encounter (principal)
CPT/HCPCS: 36415; 71045; 80048; 80076; 81001; 82550; 83735; 83880; 84484; 85025; 93005; J7030; J7120

== ENCOUNTER 2023-05-20 07:15 | Emergency (ER) | payer SELFPAY ==
--- OUTSIDE RECORDS SUMMARY | 2023-05-20 07:19 | XMS REPORT | Continuity of Care Document ---
:1995 Author Organization [facility] t Address [address] [place] [address] [place] [id number] Care Team Providers Name Role Phone Pcp, Patient Does Not Have A Primary Care Physician [id number] ILENE MARTINES Attending Clinician Unavailable SANKET FORDE Attending Clinician Unavailable LAB90 Attending Clinician Unavailable Saranya Atkins MD Attending Clinician Surgery, Clc Bls Trauma & Acute Care Attending Clinician Ellie vailable SARANYA ATKNIS Attending Clinician Unavailable Lionel Cuevas MD Attending [...] Details Category Date Date Treatment Clinician Date Other Other Disease Active Niecy fatigue fatigue 04-01 Seybold 00:00: - 00 Externa l Palpitatio Palpitatio Disease Active K elsey n n 04-01 Seybold 00:00: - 00 Externa l Laceration Laceration Disease Active 2021-09 Overview : Univers of right of right 09-06 Formattin ity of upper upper 00:00: g of this [place] extremity, extremity, 00 note Me dical initial initial might be Branch encounter encounter different from the original. Added automatic ally from request for surgery [id number] Allergies, Adverse Reactions, Alerts Allergy Allergy Status Severity Reaction(s) Onset Inactive Treating Comm ents Source Name Type Date Date Clinician Fd&C Red Propensi Active Anaphylaxis K annie #40-Fd&C ty to 03-13 Seybold Yellow adverse 00:00: - #6-Pse reaction 00 Externa s l NO KNOWN Drug Active Univers ALLERGIE Class ity of S [facility] Social History Social Habit Start Date Stop Date Quantity Comments Source Gender identity Niecy osman - External Sexual orientation Niecy Villalobos - External History of tobacco Cigarette Smoker Niecy Villalobos - use External Cigarettes smoked 2023-04-01 2023-04-01 Niecy Villalobos - current (pack per 00:00:00 00:00:00 Externa l day) - Reported Cigarette 2023-04-01 2023-04-01 Niecy Villalobos - pack-years 00:00:00 00:00:00 External Tobacco use and 2023-04-01 2023-04-01 Smokeless Niecy osman - exposure 00:00:00 00:00:00 tobacco non-user External Alcohol intake 2023-04-01 2023-04-01 .86 /d Niecy bryant - 00:00:00 00:00:00 External History of Social 2023-04-01 2023-04-01 Niecy Villalobos - function 00:00:00 00:00:00 External Education 2023-04-01 2023-04-01 16 Niecy Villalobos - 00:00:00 00:00:00 External Exposure to 2022-07-22 2022-08-01 Not sure University of SARS-CoV-2 (event) 00:00:00 10:36:00 [facility] Sex Assigned At [birth year] Niecy graciamaritza - 00:00:00 00:00:00 External Smoking Status Start Date Stop Date Source Tobacco smoking [facility] [place] consumption unknown Medical Bran ch Ex-smoker 2023-04-01 00:00:00 2023-04-01 [place]cy [place] - 00:00:00 External Never smoked tobacco [facility] Medications Ordered Filled Start Stop Current Ordering Indication Dosage Frequency Signature Comments Components Source Medication Medication Date Date Medication? Clinician (SIG) Name Name No known 2021-09 No No known Unive rs medications 2-01 medication it y of 10:45: s [address] No known 2021-09 No No known Unive rs medications 2-01 medication it y of 10:45: [address] No known 2021-09 No No known Unive rs medications 2-01 medication it y of 10:45: [address] No known 2021-09 No No known Unive rs medications 2-01 medication it y of 10:45: [address] No known 2021-09 No No known Unive rs medications 1-10 medication it y of 11:27: [address] No known 2021-09 No No known Unive rs medications 1-10 medication it y of 11:27: [address] pantoprazol 2021-09 Yes 40mg 40 mg, Univ ers e 1-08 Oral, ity of (PROTONIX) 15:00: DAILY, [place] EC tablet 00 First dose Medi boris 40 mg on [facility] 07/09/22 at 0900, Until Discontinu ed, Routine pantoprazol 2021-09 Yes 40mg 40 mg, Univ ers e 1-08 Oral, ity of (PROTONIX) 15:00: DAILY, [place] EC tablet 00 First dose Medi boris 40 mg on [facility] 07/09/22 at 0900, Until Discontinu ed, Routine ibuprofen 2021-09- No [id number] 800mg Take 1 Univers 800 mg 09-07 tablet by ity of tablet 00:00: 05:59 mouth [place] 00 :00 every 6 Medical (six) Branch hours as needed for Alternate with Faxon for pain scale 1-3 for up to 15 days. ibuprofen 2021-09- No [id number] 800mg Take 1 Univers 800 mg 09-07 tablet by ity of tablet 00:00: 05:59 mouth [place] 00 :00 every 6 Medical (six) Branch hours as needed for Alternate with Faxon for pain scale 1-3 for up to 15 days. ibuprofen 2021-09- No [id number] 800mg Take 1 Univers 800 mg 09-07 tablet by ity of tablet 00:00: 05:59 mouth [place] 00 :00 every 6 Medical (six) Branch hours as needed for Alternate with Faxon for pain scale 1-3 for up to 15 days. ibuprofen 2021-09- No [id number] 800mg Take 1 Univers 800 mg 09-07 tablet by ity of tablet 00:00: 05:59 mouth [place] 00 :00 every 6 Medical (six) Branch hours as needed for Alternate with Faxon for pain scale 1-3 for up to 15 days. ibuprofen 2021-09- No [id number] 800mg Take 1 Univers 800 mg 09-07 tablet by ity of tablet 00:00: 05:59 mouth [place] 00 :00 every 6 Medical (six) Branch hours as needed for Alternate with Faxon for pain scale 1-3 for up to 15 days. ibuprofen 2021-09- No [id number] 800mg Take 1 Univers 800 mg 09-07 tablet by ity of tablet 00:00: 05:59 mouth [place] 00 :00 every 6 Medical (six) Branch hours as needed for Alternate with Faxon for pain scale 1-3 for up to 15 days. HYDROcodone 2021-09- No 4647 1{tbl} Take 1 U nivers -acetaminop 1-07 11-15 tablet by it y of hen 10-325 00:00: 05:59 mouth [place] mg tablet 00 :00 every 8 Medical (eight) Branch hours as needed for Pain (scale 4-6) or Pain (scale 7-10) for up to 7 days. Indication s: acute pain HYDROcodone 2021-09 No 4647 1{tbl} Take 1 U nivers -acetaminop 1-07 11-15 tablet by it y of hen 10-325 00:00: 05:59 mouth [place] mg tablet 00 :00 every 8 Medical (eight) Branch hours as needed for Pain (scale 4-6) or Pain (scale 7-10) for up to 7 days. Indication s: acute pain HYDROcodone 2021-09 No 4647 1{tbl} Take 1 U nivers -acetaminop 1-07 11-15 tablet by it y of hen [...] 2 g (2,000 Univers in 0.9% 09-07 mg), ity of sodium 00:00: 10:38 Intravenou [...] within 24 hours of surgery ceFAZolin 2021-09 2000mg 2 g (2,000 Univers in 0.9% 09-07 mg), ity of sodium 00:00: 10:38 Intravenou [...] Yes 40mg 40 mg, Unive rs (LOVENOX) 1-06 Subcutaneo ity of injection 23:00: [place], [place] 40 [place] 00 First dose Medical on [place] [facility] 07/07/22 at 1700, Until Discontinu ed, Routine enoxaparin 2021-09 Yes 40mg 40 mg, Unive rs (LOVENOX) 09-06 Subcutaneo ity of injection 23:00: [place], [place] mg 00 First dose Medical on [place] [facility] 07/07/22 at 1700, Until Discontinu ed, Routine bacitracin 2021-09 Yes Topical, Uni vers 500 unit/g 09-06 TID, First ity of ointment 30 20:00: dose on Nikita as g tube 00 [facility] 07/07/22 at Branch 1400, Until Discontinu ed, Routine bacitracin 2021-09 Yes Topical, Uni vers 500 unit/g 09-06 TID, First ity of ointment 30 20:00: dose on Nikita as g tube 00 [facility] 07/07/22 at Branch 1400, Until Discontinu ed, [...] 2021-09- No 1{tbl} 1 tablet, Univers -acetaminop 09-06 Oral, ity of hen (NORCO 15:30: 16:51 ONCE, 1 Nikita as 5) 5-325 mg 00 :00 dose, On Medi boris tablet 1 [place] [facility] tablet 07/07/22 at 0930, Routine, PACU HYDROcodone 2021-09 No 1{tbl} 1 tablet, Univers -acetaminop 09-06 Oral, ity of hen (NORCO 15:30: [...] Until Discontinu ed, Routine iopamidol 2021-09- No [id number] 100mL 100 mL, Univers (ISOVUE 09-06 Intravenou ity o f 370-500 mL) 15:15: 15:15 s, ONCE, 1 [place] injection 00 :00 dose, On Medica l 100 mL [place] [facility] 07/07/22 at 0915, Routine iopamidol 2021-09- No [id number] 100mL 100 mL, Univers (ISOVUE 09-06 Intravenou ity o f 370-500 mL) 15:15: [...] Yes 4mg 4 mg, Slow Univers (ZOFRAN 106 IV Push, ity of (PF)) 15:04: Administer [...] Routine, Nausea and Vomiting (N/V) sugammadex 2021-09- IV Push, Un mary (BRIDION) 09-06 ONCE [...] Starting Branch on 07/07/22 at 0831, Until Sun 11 at 1009, Routine, Intra-op acetaminoph 2021-09- No [...] Medi boris Starting Branch on 07/07/22 at 0826, Until 07/07/22 at 1009, Routine, Intra-op ceFAZolin 2021-09- No Slow IV Univ ers (ANCEF) 09-06 Push, ONCE ity o f injection 14:10: 16:09 INTRA [place] 00 :36 PROCEDURE, Medical Starting Branch on 07/07/22 at 0810, Until Discontinu ed, PABLO, Intra-op PHENYLephri 2021-09- No Slow IV Un mary ne 1000 09-06 Push, ONCE ity o f mcg/10 mL 14:03: 16:09 INTRA [place] in 0.9% 00 :36 PROCEDURE, Medica l NaCl Starting Branch syringe on [place] 07/07/22 at 0803, Until Discontinu ed, Routine, Intra-op rocuronium 2021-09- No IV Push, Un mary (ZEMURON) 09-06 ONCE INTRA ity of injection 13:58: 16:09 PROCEDURE, [place] 00 :36 Starting Medical on [facility] 07/07/22 at 0758, Until Discontinu ed, Routine, Intra-op lidocaine 2021-09- No Slow IV Univ ers 1% 09-06 Push, ONCE ity of (XYLOCAINE) 13:58: 16:09 [place]TRA [place] 100 mg/10 00 :36 PROCEDURE, Medi boris mL (1 %) Starting Branch injection on [place] 07/07/22 at 0758, Until Discontinu ed, Routine, Intra-op propofoL IV 2021-09- No IV Unive rs infusion 09-06 Infusion, ity o f 13:58: 16:09 ONCE INTRA [place] 00 :36 PROCEDURE, Medical Starting Branch on [place] 07/07/22 at 0758, Until Discontinu ed, Routine, Intra-op FENTanyl PF 2021-09- No Epidural, Univers (SUBLIMAZE 09-06 ONCE INTRA it y of (PF)) 13:58: 16:09 PROCEDURE, [place] injection 00 :36 Starting Medica l on [facility] 07/07/22 at 0758, Until Discontinu ed, Routine, Intra-op midazolam 2021-09- No IV Push, Uni vers (VERSED) 09-06 ONCE INTRA ity of injection 13:58: 16:09 PROCEDURE, [place] 00 :36 Starting Medical on [facility] 07/07/22 at 0758, Until Discontinu ed, Routine, Intra-op lactated 2021-09- No IV Univers ringers IV 09-06 Infusion, ity of infusion 13:53: 16:09 [place]INUOUS [place] 00 :36 PRN, Medical Starting Branch on [place] 07/07/22 at 0753, Until Discontinu ed, Routine, Intra-op Vital Signs Vital Name Observation Time Observation Value Comments Source Systolic blood 2023-04-01 21:11:00 143 mm[Hg] Niecy Zhangybold - pressure External Diastolic blood 2023-04-01 21:11:00 88 mm[Hg] Danna godoy Seybold - pressure External Heart rate 2023-04-01 21:11:00 84 /min Niecy mcallisterbold - External Body temperature 2023-04-01 21:11:00 36.61 Maira Kathy mcallister Seybold - External Respiratory rate 2023-04-01 21:11:00 16 /min Kathy mcallister Seybold - External Body height 2023-04-01 21:11:00 170.2 cm Niecy mcallisterbojanette - External Body weight 2023-04-01 21:11:00 58.968 kg Niecy mcallisterbold - External BMI 2023-04-01 21:11:00 20.36 kg/m2 Niecy mcallisterbojanette - External Oxygen saturation in 2023-04-01 21:11:00 98 /min Niecy Villalobos - Arterial blood by External Pulse oximetry Systolic blood 2022-08-01 16:51:00 132 mm[Hg] Univer sity of [facility] Diastolic blood 2022-08-01 16:51:00 79 mm[Hg] Unive rsity of [facility] Heart rate 2022-08-01 16:51:00 74 /min [facility] Body temperature 2022-08-01 16:51:00 36.56 Maira [facility] 2022-08-01 16:51:00 18 /min [facility] Body height 2022-08-01 16:51:00 170.2 cm [facility] Body weight 2022-08-01 16:51:00 55.883 kg [facility] BMI 2022-08-01 16:51:00 19.30 kg/m2 [facility] Oxygen saturation in 2022-08-01 16:51:00 100 /min University Arterial blood by [facility] Pulse oximetry Branch Systolic blood 2022-07-11 17:05:00 137 mm[Hg] Univer sity of pressure [place] [facility] Diastolic blood 2022-07-11 17:05:00 79 mm[Hg] Unive rsity of pressure [place] [facility] Heart rate 2022-07-11 17:05:00 77 /min Universi ty of [place] [facility] Body temperature 2022-07-11 17:05:00 36.72 Maira Univ ersity of [place] [facility] Respiratory rate 2022-07-11 17:05:00 16 /min Univ ersity of [place] [facility] Body height 2022-07-11 17:05:00 170.2 cm Universi ty of [place] [facility] Body weight 2022-07-11 17:05:00 56.201 kg Universi ty of [place] [facility] BMI 2022-07-11 17:05:00 19.41 kg/m2 Universi ty of [place] [facility] Oxygen saturation in 2022-07-11 17:05:00 98 /min University of Arterial blood by [facility] Pulse oximetry Branch Systolic blood 2022-07-08 21:10:00 141 mm[Hg] Univer sity of pressure [place] [facility] Diastolic blood 2022-07-08 21:10:00 84 mm[Hg] Unive rsity of pressure [place] [facility] Heart rate 2022-07-08 21:10:00 91 /min Universi ty of [place] [facility] Respiratory rate 2022-07-08 21:10:00 18 /min Univ ersity of [place] [facility] Oxygen saturation in 2022-07-08 21:10:00 100 /min University of Arterial blood by [facility] Pulse oximetry Branch Body temperature 2022-07-08 17:36:00 36.67 Maira Univ ersity of [place] [facility] Body height 2022-07-07 12:40:48 170.2 cm Universi ty [facility] [place] [facility] Body weight 2022-07-07 12:40:48 58.968 kg [facility]i [facility] [place] [facility] BMI 2022-07-07 12:40:48 20.36 kg/m2 Universi ty of [place] [facility] Systolic blood 2022-07-07 15:55:00 135 mm[Hg] Univer sity of pressure [place] [facility] Diastolic blood 2022-07-07 15:55:00 55 mm[Hg] Unive rsity of pressure [place] [facility] Heart rate 2022-07-07 15:55:00 95 /min [facility] Respiratory rate 2022-07-07 15:55:00 18 /min [facility] Oxygen saturation in 2022-07-07 15:55:00 100 /min [facility] Arterial blood by [facility] Pulse oximetry Branch Body temperature 2022-07-07 15:17:00 36.28 Maira [facility] Body height 2022-07-07 12:40:48 170.2 cm [facility] Body weight 2022-07-07 12:40:48 58.968 kg [facility] BMI 2022-07-07 12:40:48 20.36 kg/m2 [facility] Procedures Procedure Date / Time Performing Clinician Source Performed BASIC METABOLIC PANEL 2022-07-08 10:16:00 Jannet Perez [facility] (NA, K, CL, CO2, GLUCOSE, [facility] BUN, CREATININE, [place]) CBC WITH DIFF 2022-07-08 10:16:00 Jannet Perez [facility] BASIC METABOLIC PANEL 2022-07-08 10:16:00 Jannet Perez [facility] (NA, K, CL, CO2, GLUCOSE, [facility] BUN, CREATININE, [place]) CBC WITH DIFF 2022-07-08 10:16:00 Jannet Perez [facility] COVID-19 (ID NOW RAPID 2022-07-07 19:31:[address] [facility] TESTING) [facility] LAB ONLY COVID 2022-07-07 19:31:00 Jannet Perez [facility] COVID-19 (ID NOW RAPID 2022-07-07 19:31:[address] [facility] TESTING) [facility] LAB ONLY COVID 2022-07-07 19:31:00 Jannet Perez [facility] XR CHEST 1 VW 2022-07-07 14:05:07 Jannet Perez [facility] XR CHEST 1 VW 2022-07-07 14:05:07 Jannet Perez [facility] CT HEAD WO CONTRAST 2022-07-07 14:02:00 Jannet Perez [facility] CT ANGIOGRAM UPPER 2022-07-07 14:02:00 Seferino Adams [facility] EXTREMITY RIGHT W Medical Branch CONTRAST CT MAXILLOFACIAL/MANDIBLE 2022-07-07 14:02:00 Jannet Perez [facility] WO CONTRAST [facility] [place] [facility] HEAD WO CONTRAST 2022-07-07 14:02:00 Jannet Perez [facility] CT ANGIOGRAM UPPER 2022-07-07 14:02:00 Seferino Adams [facility] EXTREMITY RIGHT W Medical Branch CONTRAST CT MAXILLOFACIAL/MANDIBLE 2022-07-07 14:02:00 Jannet Perez [facility] WO CONTRAST [facility] INTUBATION 2022-07-07 14:01:00 Neri [facility] o f [place] [facility] [place] UPPER EXTREMITY 2022-07-07 13:39:00 [facility] REPAIR Medical Branch UPPER EXTREMITY 2022-07-07 13:39:00 Atkins [facility] LACERATION REPAIR Medical Branch HB ABO GROUPING 2022-07-07 12:53:00 Angie [facility] HB ABO GROUPING 2022-07-07 12:53:00 Angie [facility] COMP. METABOLIC PANEL 2022-07-07 12:36:00 Angie [facility] ([id number]) [facility] CBC WITH DIFF 2022-07-07 12:36:00 Angie [facility] PROTHROMBIN TIME / INR 2022-07-07 12:36:00 Seferino Adams [facility] ACTIVATED PARTIAL 2022-07-07 12:36:00 Seferino Adams [facility] COMP. METABOLIC PANEL 2022-07-07 12:36:00 Angie [facility] ([id number]) [facility] CBC WITH DIFF 2022-07-07 12:36:00 Angie [facility] PROTHROMBIN TIME / INR 2022-07-07 12:36:00 Seferino Adams [facility] ACTIVATED PARTIAL 2022-07-07 12:36[facility]00 [facility] End Encounter Admission Attending Care Care Encounter Source Date/Time Date/Time Type Type Clinicians Facility Department ID 2023-05-02 2023-05-02 Outpatient NIECY MARTINES [id number] Niecy 11:45:00 11:45:00 ILENE Seybol d 2023-04-11 2023-04-11 Outpatient NIECY FORDE [id number] Niecy 10:00:00 10:00:00 SANKET Seybol d 2023-04-01 2023-04-01 Outpatient LAB90 NIECY ARORA [id number] Nie[place] 17:00:00 17:00:00 Seybol honey 2023-04-01 2023-04-01 Outpatient NIECY MARTINES [id number] Nie[place] 16:15:00 16:15:00 ILENE Seybol d 2023-03-28 2023-03-28 Outpatient NIECY MARTINES [id number] Niecy 00:00:00 00:00:00 ILENE Seybol d 2023-03-27 2023-03-27 Outpatient NIECY MARTINES [id number] Niecy 08:30:00 08:30:00 ILENE Seybol d 2023-03-13 2023-03-13 Outpatient NIECY MARTINES [id number] Niecy 00:00:00 00:00:00 ILENE Seybol d 2022-08-06 2022-08-06 Saranya León [place] [id number] Univers 00:00:00 00:00:00 (Out) HEALTH 350.1.13.10 it y of CLEAR 4.2.7.2.686 [facility] [place] [id number] [place] [address] Branch OFFICE BUILDING 2022-08-06 2022-08-06 Telephone Surgery, [place] 1.2.840.114 [id number] Univers 00:00:00 00:00:00 Clc Bls HEALTH 350.1.13.10 it y of Trauma & CLEAR 4.2.7.2.686 Nikita as Acute Care [place]ONNELL [id number] [facility] 203 Branch OFFICE BUILDING 2022-08-01 2022-08-01 Outpatient R SARANYA ATKINS [facility] [id number] Univers 10:45:00 11:00:44 ity of [facility] 2022-08-01 2022-08-01 Office Surgery, [facility] Bls Trauma & [facility] [place] [facility] [place] 1.2.840.114 [id number] Univers 10:45:00 11:00:44 [facility] 350.1.13.10 [place] [id number] [address] OFFICE BUILDING 2022-07-30 2022-07-30 Telephone Lionel Cuevas [place] [id number] Univers 00:00:00 00:00:00 SPECIALTY 350.1.13.10 ity of C[place]2.7.2.686 [place] [id number] Oh noé [place] [address] Branch [facility] 2022-07-29 2022-07-29 Outpatient R LIONEL CUEVAS [facility] [id number] Univers 14:45:00 14:45:00 ity of [facility] 2022-07-22 2022-07-22 Outpatient R SATNAM [facility]EROLD [facility] [id number] Univers 09:30:00 09:30:00 ity of [facility] 2022-07-15 2022-07-15 [facility] 1.2.840.114 [id number] Univers 00:00:00 00:00:00 HEALTH 350.1.13.10 it y of [place].2.686 [place] [id number] [address] OFFICE BUILDING 2022-07-15 2022-07-15 Refjaqueline Warren [place] 1.2.840.114 [id number] Univers 00:00:00 [facility]:00:00 [facility] 350.1.13.10 it[place]2.[place] [id number] [address] ([facility]) 2022-07-11 2022-07-11 Office Saranya Atkins [place] 1.2.840.114 [id number] Univers 10:40:00 10:50:00 Visit HEALTH 350.1.13.10 it y of [place]2.[place].2.[place] [id number] [facility] 203 Branch OFFICE BUILDING 2022-07-11 2022-07-11 Outpatient R SARANYA ATKINS [facility] [id number] Univers 10:40:00 10:40:00 ity of [facility] 2022-07-07 2022-07-08 Outpatient X MILLY BEAVER [place] [facility] [id number] Univers 06:33:00 16:50:00 ity of [facility] 2022-07-07 2022-07-08 Emergency Abdiel Contreras [place] 1.2.840. 114 [id number] Univers 06:33:00 16:50:00 AtkinsSaranya linton [facility] 350.1.13.10 ity of [place].2.[place] [phone] [facility] 109 Branch ([facility]) 2022-07-07 2022-07-07 Surgery Milly Beaver [place] 1.2.840.114 [id number] Univers 07:55:00 09:58:00 HEALTH 350.1.13.10 it y of [place].2.686 [place] [id number] [place] [address] Branch ([facility]) 2022-07-07 2022-07-07 Anesthesia Cosmo He [place] 1.2.840.114 [id number] Univers 07:53:00 09:15:00 Event Joseph Garcia HEALTH 350.1.13.10 ity of [place]2.[place] [phone] [address] ([facility]) Results Test Description Test Time Test Comments [...] L [Au tomated message] The system which Pathagility nerated this result transmit adri reference range: [...] 34.0 g/dL 31.2-35.0 RDW-SD (test code = 66944-3) 42.9 fL 38.5-51.6 RDW-CV (test code = 788-0) 13.0 % 12.1-15.4 PLT (test code = 777-3) See_Comment [Au tomated message] The system which Pathagility nerated this result transmit adri reference range: 150 - 32 8 10*3/?L. The reference range was not used to interpret th is result as normal/abnormal . MPV (test code = 51923-1) 10.6 fL 9.8-13.0 NRBC/100 WBC (test code = See_Comment [ Automated message] The [id number]) system which Pathagility nerated this result transmit adri reference range: 0.0 - 10 .0 /100 WBCs. The reference r hawk was not used to interpr et this result as normal/abnor mal. NRBC x10^3 (test code = See_Comment [Au tomated message] The [id number]) system which Pathagility nerated this result transmit adri reference range: 10*3/?L. The reference range was not u sed to interpret this result as normal/abnormal . GRAN MAT (NEUT) % (test code 72.8 % = 770-8) IMM GRAN % (test code = 0.30 % [id number]) LYMPH % (test code = 736-9) 17.6 % MONO % (test code = 5905-5) 9.0 % EOS % (test code = 713-8) 0.1 % BASO % (test code = 706-2) 0.2 % GRAN MAT x10^3(ANC) (test 8.84 10*3/uL 1.99-6.95 H code = 5714822923) IMM GRAN x10^3 (test code = 0.04 10*3/uL 0.00-0.06 [id number]) LYMPH x10^3 (test code = 2.14 10*3/uL 1.09-3.23 731-0) MONO x10^3 (test code = 1.09 10*3/uL 0.36-1.02 H 742-7) EOS x10^3 (test code = 0.06-0.53 L 711-2) BASO x10^3 (test code = 0.03 10*3/uL 0.01-0.09 704-7) Lab Interpretation (test Abnormal code = 88875-4) [facility] with [id number] 10:38:24 Test Item Value Reference Range Interpretation [...] RDW-SD (test code = 42.9 fL 38.5-51.6 66178-6) RDW-CV (test code = 13.0 % 12.1-15.4 788-0) PLT (test code = See_Comment [Automated 777-3) message] The sy stem which generated this result transmitted reference range : 150 - 328 10*3/ ?L. The reference r hawk was not used to interpret this result as normal/abnormal . MPV (test code = 10.6 fL 9.8-13.0 80969-2) NRBC/100 WBC (test See_Comment [Automat ed code = [id number]) message] The system which generated this result transmitted reference range : 0.0 - 10.0 /100 WBCs. The refer ence range was not u sed to interpret th is result as normal/abnormal . NRBC x10^3 (test code See_Comment [Auto mated = 7903264994) message] The s ystem which generated this result transmitted reference range : 10*3/?L. The reference range was not used to interpret this result as normal/abnormal . GRAN MAT (NEUT) % 72.8 % (test code = 770-8) IMM GRAN % (test code 0.30 % = 3329796566) LYMPH % (test code = 17.6 % 736-9) MONO % (test code = 9.0 % 5905-5) EOS % (test code = 0.1 % 713-8) BASO % (test code = 0.2 % 706-2) GRAN MAT x10^3(ANC) 8.84 10*3/uL 1.99-6.95 H (test code = 1057749641) IMM GRAN x10^3 (test 0.04 10*3/uL 0.00-0.06 code = 9454036324) LYMPH x10^3 (test code 2.14 10*3/uL 1.09-3.23 = 731-0) MONO x10^3 (test code 1.09 10*3/uL 0.36-1.02 H = 742-7) EOS x10^3 (test code = 0.06-0.53 L 711-2) BASO x10^3 (test code 0.03 10*3/uL 0.01-0.09 = 704-7) Lab Interpretation Abnormal (test code = 68511-9) [facility] Metabolic Panel (NA, K, CL, CO2, Glucose, BUN, Creatinine, CA)2022-07-08 10:37:03 Test Item Value Reference Range Interpretation Comments NA (test code = 134 mmol/L 135-145 L 1921885481) K (test code = 3.9 mmol/L 3.5-5.0 Slight 3184334797) hemolysis CL (test code = 104 mmol/L 98-108 8592759183) CO2 TOTAL (test code 28 mmol/L 23-31 = 3721994046) AGAP (test code = 2-16 9618941045) BUN (test code = 9 mg/dL 7-23 Slight 7056201114) hemolysis GLUCOSE (test code = 105 mg/dL 70-110 2057547418) CREATININE (test code 0.79 mg/dL 0.60-1.25 = 4516510877) CALCIUM (test code = 7.7 mg/dL 8.6-10.6 L 8390989319) eGFR (test code = mL/min/1.73m2 3189601434) PRITESH (test code = PRITESH) Association of [...] tests). Lab Interpretation Abnormal (test code = 59463-8) [facility] Metabolic Panel (NA, K, CL, CO2, Glucose, BUN, Creatinine, CA)2022-07-08 10:37:03 Test Item Value Reference Range Interpretation Comments NA (test code = 134 mmol/L 135-145 L 2330685414) K (test code = 3.9 mmol/L 3.5-5.0 Slight 1612065481) hemolysis CL (test code = 104 mmol/L 98-108 2189907227) CO2 TOTAL (test code 28 mmol/L 23-31 = 5240712130) AGAP (test code = 2-16 2216532772) BUN (test code = 9 mg/dL 7-23 Slight 3332857940) hemolysis GLUCOSE (test code = 105 mg/dL 70-110 8262579781) CREATININE (test code 0.79 mg/dL 0.60-1.25 = 3803833982) CALCIUM (test code = 7.7 mg/dL 8.6-10.6 L 9185222689) eGFR (test code = mL/min/1.73m2 4071942370) PRITESH (test code = PRITESH) Association of [...] tests). Lab Interpretation Abnormal (test code = 60742-9) [facility] and Screen - ONCE [id number] 13:23:56 Test Item Value Reference Range Interpretation Comments ABO & RH (test AB Positive Performed at [facility] code = 20) [facility] [address] [place], [place] [id number] 4Toll Free: [phone] 266CLIA No. [id number] IAT (test code = Negative Performed a t [facility] 1185) [facility] [address] [place], [place] [address] 4Toll Free: [phone] 266CLIA No. [id number] [facility] and Screen - ONCE [id number] 13:23:56 Test Item Value Reference Range Interpretation Comments ABO & RH (test AB Positive Performed at [facility] code = 20) [facility] [address] [place], [place] [address] 4Toll Free: [phone] 266CLIA No. [id number] IAT (test code = Negative Performed a t [facility] 1185) [facility] [address] [place], [place] [address] 4Toll Free: [phone] 266CLIA No. [id number] [facility] WITH [id number] 13:09:47 Test Item Value Reference Range Interpretation Comments WBC (test code = See_Comment H [Automated 7690-2) message] The system which generated this result [...] RDW-SD (test code = 42.7 fL 38.5-51.6 02558-6) RDW-CV (test code = 13.0 % 12.1-15.4 788-0) PLT (test code = See_Comment [Automated 777-3) message] The system which generated this result transmit adri reference range : 150 - 328 10*3/ ?L. The reference range was not u sed to interpret th is result as normal/abnormal . MPV (test code = 9.8 fL 9.8-13.0 91911-1) NRBC/100 WBC (test See_Comment [Automat ed code = 6252120494) message] The system which generated this result transmit adri reference range : 0.0 - 10.0 /100 WBCs. The reference range was not used to interpret this result as normal/abnormal . NRBC x10^3 (test code See_Comment [Auto mated = 1715710295) message] The system which generated this result transmit adri reference range : 10*3/?L. The reference range was not used to interpret this result as normal/abnormal . GRAN MAT (NEUT) % 84.4 % (test code = 770-8) IMM GRAN % (test code 0.50 % = 7980650475) LYMPH % (test code = 6.5 % 736-9) MONO % (test code = 8.1 % 5905-5) EOS % (test code = 0.3 % 713-8) BASO % (test code = 0.2 % 706-2) GRAN MAT x10^3(ANC) 18.32 10*3/uL 1.99-6.95 H (test code = 7777178025) IMM GRAN x10^3 (test 0.11 10*3/uL 0.00-0.06 H code = 3392909323) LYMPH x10^3 (test code 1.41 10*3/uL 1.09-3.23 = 731-0) MONO x10^3 (test code 1.76 10*3/uL 0.36-1.02 H = 742-7) EOS x10^3 (test code = 0.06 10*3/uL 0.06-0.53 711-2) BASO x10^3 (test code 0.04 10*3/uL 0.01-0.09 = 704-7) Lab Interpretation Abnormal (test code = 93750-0) [facility] WITH [id number] 13:09:47 Test Item Value Reference Range Interpretation [...] RDW-SD (test code = 42.7 fL 38.5-51.6 37179-0) RDW-CV (test code = 13.0 % 12.1-15.4 788-0) PLT (test code = See_Comment [Automated 777-3) message] The system which generated this result transmit adri reference range : 150 - 328 10*3/ ?L. The reference range was not u sed to interpret th is result as normal/abnormal . MPV (test code = 9.8 fL 9.8-13.0 30564-5) NRBC/100 WBC (test See_Comment [Automat ed code = 8847942502) message] The system which generated this result transmit adri reference range : 0.0 - 10.0 /100 WBCs. The reference range was not used to interpret this result as normal/abnormal . NRBC x10^3 (test code See_Comment [Auto mated = 5102007221) message] The system which generated this result transmit adri reference range : 10*3/?L. The reference range was not used to interpret this result as normal/abnormal . GRAN MAT (NEUT) % 84.4 % (test code = 770-8) IMM GRAN % (test code 0.50 % = 8985023733) LYMPH % (test code = 6.5 % 736-9) MONO % (test code = 8.1 % 5905-5) EOS % (test code = 0.3 % 713-8) BASO % (test code = 0.2 % 706-2) GRAN MAT x10^3(ANC) 18.32 10*3/uL 1.99-6.95 H (test code = 2724896199) IMM GRAN x10^3 (test 0.11 10*3/uL 0.00-0.06 H code = 4566760993) LYMPH x10^3 (test code 1.41 10*3/uL 1.09-3.23 = 731-0) MONO x10^3 (test code 1.76 10*3/uL 0.36-1.02 H = 742-7) EOS x10^3 (test code = 0.06 10*3/uL 0.06-0.53 711-2) BASO x10^3 (test code 0.04 10*3/uL 0.01-0.09 = 704-7) Lab Interpretation Abnormal (test code = 84065-4) [id number] 13:07:56 Test Item Value Reference Range Interpretation Comments APTT Patient (test code See_Comment L No c lot [Automated = 3173-2) message] The sy stem which generated this result transmit adri reference range : 26 - 36 Seconds. The reference range was not used to int erpret this result as normal/abnormal . Lab Interpretation (test Abnormal code = 88616-8) [facility] [id number] 13:07:56 Test Item Value Reference Range Interpretation Comments APTT Patient (test code See_Comment L No c lot [Automated = 3173-2) message] The sy stem which generated this result transmit adri reference range : 26 - 36 Seconds. The reference range was not used to int erpret this result as normal/abnormal . Lab Interpretation (test Abnormal code = 46020-1) [facility] [id number] 13:06:50 Test Item Value Reference Range Interpretation Comments PROTIME PATIENT (test See_Comment H [Auto mated message] code = 5964-2) The system [employer] generated this result transmitted ref erence range: 10.1 - 1 2.6 Seconds. The reference range was not used to int erpret this result as normal/abnormal . INR (test code = 6301-6) Nor mal INR <1.1; Warfarin Therap eutic range 2.0 to 3. 0 or 2.5 to 3.5, dep ending upon the indica tions. Lab Interpretation (test Abnormal code = 75998-6) [facility] [id number] 13:06:50 Test Item Value Reference Range Interpretation Comments PROTIME PATIENT (test See_Comment H [Auto mated message] code = 5964-2) The system [employer] generated this result transmitted ref erence range: 10.1 - 1 2.6 Seconds. The reference range was not used to int erpret this result as normal/abnormal . INR (test code = 6301-6) Nor mal INR <1.1; Warfarin Therap eutic range 2.0 to 3. 0 or 2.5 to 3.5, dep ending upon the indica tions. Lab Interpretation (test Abnormal code = 48803-9) [facility]. METABOLIC PANEL (04469)2022-07-07 12:56:45 Test Item Value Reference Range Interpretation Comments NA (test code = 143 mmol/L 135-145 0630772649) K (test code = 3.8 mmol/L 3.5-5.0 5208881375) CL (test code = 111 mmol/L 98-108 H 6232640871) CO2 TOTAL (test code = 21 mmol/L 23-31 L 1382454382) AGAP (test code = 2-16 3960826460) BUN (test code = 10 mg/dL 7-23 1446037053) GLUCOSE (test code = 107 mg/dL 70-110 2598886178) CREATININE (test code = 1.03 mg/dL 0.60-1.25 0980905819) TOTAL BILI (test code = 0.3 mg/dL 0.1-1.7 9192555962) CALCIUM (test code = 7.4 mg/dL 8.6-10.6 L 2050752262) T PROTEIN (test code = 5.2 g/dL 6.3-8.2 L 8166201082) ALBUMIN (test code = 3.2 g/dL 3.5-5.0 L 9253176234) ALK PHOS (test code = 46 U/L 34-122 6853618269) ALTv (test code = 16 U/L 5-50 1742-6) AST(SGOT) (test code = 43 U/L 13-40 H 9065711540) eGFR (test code = mL/min/1.73m2 4111510240) PRITESH (test code = PRITESH) Association of [...] tests). Lab Interpretation Abnormal (test code = 15000-1) [facility]. METABOLIC PANEL (55077)2022-07-07 12:56:45 Test Item Value Reference Range Interpretation Comments NA (test code = 143 mmol/L 135-145 6638726798) K (test code = 3.8 mmol/L 3.5-5.0 7226889418) CL (test code = 111 mmol/L 98-108 H 3331899407) CO2 TOTAL (test code = 21 mmol/L 23-31 L 9206014190) AGAP (test code = 2-16 4424779468) BUN (test code = 10 mg/dL 7-23 5800530649) GLUCOSE (test code = 107 mg/dL 70-110 3401183891) CREATININE (test code = 1.03 mg/dL 0.60-1.25 0474094079) TOTAL BILI (test code = 0.3 mg/dL 0.1-1.4 7160475192) CALCIUM (test code = 7.4 mg/dL 8.6-10.6 L 4730883949) T PROTEIN (test code = 5.2 g/dL 6.3-8.2 L 5897794610) ALBUMIN (test code = 3.2 g/dL 3.5-5.0 L 0362735156) ALK PHOS (test code = 46 U/L 34-122 4375215680) ALTv (test code = 16 U/L 5-50 2-6) AST(SGOT) (test code = 43 U/L 13-40 H 8519940350) eGFR (test code = mL/min/1.73m2 6272675091) PRITESH (test code = PRITESH) Association of [...] tests). Lab Interpretation Abnormal (test code = 58361-4) [facility]"
--- NOTE | 2023-05-20 07:31 | EDPHYS ---
Physician Documentation [facility] Name: Jess Bautista Age: 28 yrs Sex: Male : 1995 Arrival Date: 05/20/2023 Time: 07:15 Bed IW3 Private MD: ED Physician Gabriel Doll HPI: 05/20 07:28 This 28 yrs old Male presents to ER via Unassigned with complaints of Low Back Pain, rn Leg Pain. 07:28 The patient presents with pain that is acute. The symptoms are located in the low back. rn The pain radiates to the left leg. Onset: The symptoms/episode began/occurred 3 day(s) ago. Modifying factors: The patient symptoms are alleviated by nothing, the patient symptoms are aggravated by any movement. Severity of symptoms: At their worst the symptoms were moderate, in the emergency department the symptoms are unchanged. The patient has experienced similar episodes in the past. The patient has not recently seen a physician. Patient reports told in past has curvature to lumbar spine and has pinched nerves by chiropractor. Reports has had similar pain in the past. No trauma. No weakness of lower extremities. No bowel or bladder problems. Reports increase in pain for the last 3 days. Left lower back and buttocks that radiates down the left leg and stops at approximately the knee. No weakness.. Historical: - Allergies: 07:37 No Known Allergies; jl7 - Home Meds: 07:37 None [Active]; jl7 - PMHx: 07:37 None; jl7 - PSHx: 07:37 arm; jl7 - Immunization history:: Adult Immunizations unknown. - Social history:: Smoking status: Reported history of juuling and/or vaping. - Family history:: not pertinent. - Hospitalizations: : No recent hospitalization is reported. ROS: 07:28 Constitutional: Negative for fever, chills, and weight loss, Back: Positive for left rn lower back pain MS/Extremity: Negative for injury and deformity, Neuro: Negative for headache, weakness, numbness, tingling, and seizure, Exam: 07:28 Constitutional: This is a well developed, well nourished patient who is awake, alert, rn and in no acute distress. Ambulatory without assistance to triage area Back: No spinal tenderness. Full range of motion. MS/ Extremity: Pulses equal, no cyanosis. Neurovascular intact. Full, normal range of motion. Equal circumference. Neuro: Awake and alert, GCS 15. Motor strength 5/5 in all extremities. Sensory grossly intact. Cerebellar exam normal. Normal gait. Vital Signs: 07:36 BP 142 / 92; Pulse 69; Resp 15; Temp 97.9; Pulse Ox 100% ; Weight 58.97 kg; Height 5 jl7 ft. 7 in. ; Pain 10/10; 07:36 Body Mass Index 20.36 (58.97 kg, 170.18 cm) [facility] 07:36 Pain Scale: Adult jl7 MDM: 07:17 Patient medically screened. rn 07:28 Differential diagnosis: arthritis, sciatica, Herniated disc. Data reviewed: vital rn signs, nurses notes, and as a result, I will discharge patient. Counseling: I had a detailed discussion with the patient and/or guardian regarding the historical points, exam findings, and any diagnostic results supporting the discharge/admit diagnosis, the need for outpatient follow up, to return to the emergency department if symptoms worsen or persist or if there are any questions or concerns that arise at home. Special discussion: I discussed with the patient/guardian in detail that at this point there is no indication for admission to the hospital. It is understood, however, that if the symptoms persist or worsen the patient needs to return immediately for re-evaluation. Further emergent ED testing is not indicated at this point in time. I discussed with the patient/guardian in detail the need to arrange with the PCP or specialist further outpatient testing, MRI, Based on the history and exam findings, there is no indication for further emergent testing or inpatient evaluation. I discussed with the patient/guardian the need to see the back specialist for further evaluation of the symptoms. Administered Medications: 07:45 Drug: Ketorolac IM 30 mg IM once Route: IM; Site: right deltoid; [facility] 08:03 Follow up: Response: Medication administered at discharge. [facility] 07:45 Drug: predniSONE PO 60 mg PO once Route: PO; 7 08:03 Follow up: Response: Medication administered at discharge. [facility] Disposition Summary: 05/20/23 07:31 Discharge Ordered Notes: Location: Home rn Problem: an ongoing problem rn Symptoms: have improved rn Condition: Stable rn Diagnosis - Radiculopathy, lumbar region rn Followup: rn - With: Private Physician - When: As needed - Reason: Recheck today's complaints, Re-evaluation by your physician Discharge Instructions: - Discharge Summary Sheet rn - Lumbosacral Radiculopathy rn Forms: - Medication Reconciliation Form rn - Thank You Letter rn - Antibiotic barnworker groom - Prescription Opioid Use rn - Patient Portal Instructions rn - Leadership Thank You Letter rn Prescriptions: - Cyclobenzaprine 10 mg Oral tablet - take 1 tablet ORAL route every 8 hours As needed; 12 tablet; Refills: 0, rn Product Selection Permitted - Medrol (Ronak) 4 mg Oral Tablets, Dose Pack - take 1 tablet ORAL route as directed - follow package instructions; 1 packet; rn Refills: 0, Product Selection Permitted Signatures: Gabriel Doll MD MD rn Leal, Jahala, RN RN jl7
[2023-05-20] MEDS ORDERED: predniSONE 20 MG TAB ONE (07:52)
[2023-05-20] MEDS ORDERED: KETOROLAC 30 MG/ML INJ ONE (07:53)
--- NOTE | 2023-05-20 08:04 | ER ---
Nurse's Notes [facility] Name: Jess Bautista Age: 28 yrs Sex: Male : 1995 Arrival Date: 05/20/2023 Time: 07:15 Bed IW3 Private MD: Diagnosis: Radiculopathy, lumbar region Presentation: 05/20 07:36 Chief complaint: Patient states: Left low back pain radiates to left leg. Coronavirus jl7 screen: At this time, the client does not indicate any symptoms associated with coronavirus-19. Ebola Screen: No symptoms or risks identified at this time. Initial Sepsis Screen: Does the patient meet any 2 criteria? No. Patient's initial sepsis screen is negative. Does the patient have a suspected source of infection? No. Patient's initial sepsis screen is negative. Risk Assessment: Do you want to hurt yourself or someone else? Patient reports no desire to harm self or others. Onset of symptoms is unknown. 07:36 Method Of Arrival: Ambulatory jl7 07:36 Acuity: AGNES 4 jl7 Triage Assessment: 07:37 General: Appears in no apparent distress. uncomfortable, Behavior is calm, cooperative, jl7 appropriate for age. Pain: Complains of pain in left leg. Historical: - Allergies: 07:37 No Known Allergies; jl7 - Home Meds: 07:37 None [Active]; jl7 - PMHx: 07:37 None; jl7 - PSHx: 07:37 arm; jl7 - Immunization history:: Adult Immunizations unknown. - Social history:: Smoking status: Reported history of juuling and/or vaping. - Family history:: not pertinent. - Hospitalizations: : No recent hospitalization is reported. Vital Signs: 07:36 BP 142 / 92; Pulse 69; Resp 15; Temp 97.9; Pulse Ox 100% ; Weight 58.97 kg; Height 5 jl7 ft. 7 in. ; Pain 10/10; 07:36 Body Mass Index 20.36 (58.97 kg, 170.18 cm) jl7 07:36 Pain Scale: Adult jl7 ED Course: 07:17 Patient arrived in ED. rg4 07:17 Gabriel Doll MD is Attending Physician. rn 07:37 Triage completed. jl7 07:37 Arm band placed on right wrist. jl7 08:03 Valerio, Jahala, RN is Primary Nurse. jl7 08:04 No provider procedures requiring assistance completed. Patient did not have IV access jl7 during this emergency room visit. Administered Medications: 07:45 Drug: Ketorolac IM 30 mg IM once Route: IM; Site: right deltoid; jl7 08:03 Follow up: Response: Medication administered at discharge. jl7 07:45 Drug: predniSONE PO 60 mg PO once Route: PO; jl7 08:03 Follow up: Response: Medication administered at discharge. jl7 Medication: 08:04 VIS not applicable for this client. jl7 Outcome: 07:31 Discharge ordered by . rn 08:04 Discharged to home ambulatory, jl7 08:04 Condition: stable 08:04 Discharge instructions given to patient, Instructed on discharge instructions, follow up and referral plans. medication usage, Demonstrated understanding of instructions, follow-up care, medications, Prescriptions given X 2, 08:04 Patient left the ED. jl7 Signatures: Gabriel Doll MD MD rn Garcia, Rubi rg4 Brenton Valerio, FREDY RN jl7
[2023-05-20 08:23] VITALS: BP 142/92; TEMP 97.9; O2SAT 100
== END 2023-05-20 08:04 | disposition home or self-care (01) ==
LOC: ER 07:15
DX: M54.16 Radiculopathy, lumbar region (principal)
CPT/HCPCS: J7512